=== PATIENT | female | born 1950 | race Caucasian/White ===

== ENCOUNTER 2017-12-16 08:36 | Outpatient (CLI) | payer MEDICARE, OTHER ==
--- NOTE | 2017-12-17 14:05 | Mammography Report ---
DIGITAL SCREENING MAMMOGRAM: 12/16/2017 CLINICAL INDICATION: A 67-year-old for baseline. TECHNIQUE: Routine CC and MLO projections were obtained of the breasts. FINDINGS: The breasts demonstrate scattered fibroglandular densities bilaterally. Coarse and punctate, typically benign calcifications are present. No suspicious masses, clustered microcalcifications, or regions of architectural distortion are identified. IMPRESSION: BENIGN FINDINGS. RECOMMENDATION: Routine annual screening unless otherwise clinically indicated. BI-RADS CATEGORY 2 - BENIGN FINDINGS. STANDARD QUALIFYING STATEMENTS: 1. This examination was reviewed with the aid of Computer-Aided Detection (CAD). 2. A negative or benign imaging report should not delay biopsy if clinically suspicious findings are present. Consider surgical consultation if warranted. More than 5% of cancers are not identified by imaging. 3. Dense breasts may obscure an underlying neoplasm. TD: 12/17/2017 14:04
== END 2017-12-16 08:37 | disposition home or self-care (01) ==
LOC: DI 08:36
PROVIDERS: ATTEND Physician Assistant
DX: Z12.31 Encounter for screening mammogram for malignant neoplasm of breast (principal)
CPT/HCPCS: 77067

== ENCOUNTER 2017-12-16 08:38 | Outpatient (CLI) | payer MEDICARE, OTHER ==
--- NOTE | 2017-12-17 16:32 | DEXA Report ---
EXAM: DEXA 12/16/2017 CLINICAL INDICATION: Postmenopausal. TECHNIQUE: Dual energy x-ray absorptiometry (DXA) was performed on a [employer] system. Regions measured are the AP spine, femoral neck, and, if needed, forearm. COMPARISON: None. In accordance with the International Society for Clinical Densitometry (ISCD) guidelines, data from previous exams may be reanalyzed using current recommendations and techniques. This is done to allow a more accurate basis for comparison with the current study. FINDINGS Data for the lumbar spine is as follows: REGION BMD (g/cm/cm) T-SCORE Z-SCORE L1 1.011 -1.0 0.8 L2 0.964 -2.0 -0.2 L3 1.114 -0.7 1.0 L4 1.216 0.1 1.9 L1-L4 1.093 -0.7 1.0 L2-L4 1.114 -0.7 1.0 NOTE: All evaluable vertebrae are used for classification. Data for the hip is as follows: REGION BMD (g/cm/cm) T-SCORE Z-SCORE Neck 0.814 -1.6 -0.1 TOTAL 0.903 -0.8 0.6 NOTE: The femoral neck or total proximal femur, whichever is lowest, is used for classification. IMPRESSION THE WHO CLASSIFICATION BASED ON THE INTERNATIONAL REFERENCE STANDARD IS OSTEOPENIA (REFERENCE LEFT FEMORAL NECK). THE FRACTURE RISK IS INCREASED. RECOMMENDATION: Patients with diagnosis of osteoporosis or osteopenia should have regular bone mineral density assessment. For those eligible for Medicare, routine testing is allowed once every 2 years. Testing frequency can be increased for patients who have rapidly progressing disease or for those who are receiving medical therapy to restore bone mass. COMMENT World Health Organization (WHO) definitions for osteoporosis and osteopenia: NORMAL BMD: T-score at 1.0 or higher, fracture risk is low. OSTEOPENIA BMD: T-score between 1.0 and -2.5, fracture risk is increased. OSTEOPOROSIS BMD: T-score at 2.5 or lower, fracture risk high. National Osteoporosis Foundation recommends: 1. Obtain adequate dietary calcium (at least 1200 mg per day) and vitamin D (400 -800 international units per day). 2. Participate, as appropriate, in regular weightbearing and muscle- strengthening exercise. 3. Avoid tobacco use and reduce alcohol and caffeine intake. 4. For more detailed information see the website at www.NOF.org. TD: 12/16/2017 10:25 CANELO
== END 2017-12-16 08:39 | disposition home or self-care (01) ==
LOC: DI 08:38
PROVIDERS: ATTEND Physician Assistant
DX: M85.852 Other specified disorders of bone density and structure, left thigh (principal)
CPT/HCPCS: 77080

== ENCOUNTER 2018-01-06 09:45 | Outpatient (CLI) | payer MEDICARE, OTHER ==
[2018-01-06 12:48] LABS: BASOPHILS % (AUTO) 0.9 %; EOSINOPHILS # (AUTO) 0.1 10^3/uL (0.0-0.7); EOSINOPHILS % (AUTO) 2.1 %; HGB - HEMOGLOBIN 13.1 g/dL (12.0-16.0); LYMPHOCYTES % (AUTO) 22.3 %; MEAN CORPUSCULAR HEMOGLOBIN 34.5 pg (27.0-31.0); MEAN CORPUSCULAR HGB CONC 34.6 g/dL (32.0-36.0); MEAN CORPUSCULAR VOLUME 99.8 fL (81.0-99.0); MEAN PLATELET VOLUME 7.3 fL (7.9-10.8); MONOCYTES # (AUTO) 0.4 10^3/uL (0.0-1.0); MONOCYTES % (AUTO) 9.7 %; NEUTROPHILS # (AUTO) 2.9 10^3/uL (1.5-6.6); PLT - PLATELET COUNT 188 10^3/uL (130-450); RED BLOOD COUNT 3.79 10^6/uL (4.20-5.40); RED CELL DISTRIBUTION WIDTH 13.3 % (12.0-15.0); WHITE BLOOD COUNT 4.5 x10^3/uL (4.8-10.8)
[2018-01-06 14:17] LABS: HB2 TOTAL 13.4 g/dL; HEMOGLOBIN A1C 0.49 g/dL; HEMOGLOBIN A1C % 5.5 % (4.6-6.2)
[2018-01-06 14:42] LABS: ALBUMIN 3.1 g/dL (3.2-5.5); ALBUMIN/GLOBULIN RATIO 1.1 (1.0-2.2); ALKALINE PHOSPHATASE 45 IU/L (42-121); ALT ALANINE AMINOTRANSFERASE 24 IU/L (10-60); AST ASPARTATE AMINOTRANSFERASE 32 IU/L (10-42); BILIRUBIN,TOTAL 0.8 mg/dL (0.2-1.0); BUN - BLOOD UREA NITROGEN 21 mg/dL (6-20); CALCIUM 8.8 mg/dL (8.5-10.3); CARBON DIOXIDE - CO2 30 mmol/L (21-32); CHLORIDE 98 mmol/L (101-111); CHOL/HDL RATIO 2.2 (<4.4); CHOLESTEROL 307 mg/dL; CREATININE 0.7 mg/dL (0.4-1.0); GFR - MDRD 83 (>89); GLUCOSE 93 mg/dL (70-100); HDL CHOLESTEROL 140 mg/dL; SODIUM 135 mmol/L (135-145); TOTAL PROTEIN 5.8 g/dL (6.7-8.2)
[2018-01-06 16:53] LABS: LDL CHOLESTEROL,DIRECT 121 mg/dL; LDLD/HDL RATIO 0.9 (<4.4)
== END 2018-01-06 09:46 ==
LOC: LAB.WCP 09:45
PROVIDERS: ATTEND Physician Assistant
DX: Z00.00 Encounter for general adult medical examination without abnormal findings (principal); I10 Essential (primary) hypertension
CPT/HCPCS: 36415; 80053; 80061; 83036; 83721; 84443; 85025

== ENCOUNTER 2018-04-14 13:35 | Outpatient (CLI) | payer MEDICARE, OTHER ==
--- NOTE | 2018-04-14 16:05 | XRAY Report ---
Reason: HIP JOINT PAIN,RT Procedure Date: 04/14/2018 Accession Number: [id number] / [id number] Procedure: XR - Hip w/Pelvis 2-3V RT CPT Code: FULL RESULT: EXAM: RIGHT HIP AND PELVIS RADIOGRAPHY EXAM DATE: 04/14/2018 02:28 PM. HISTORY: Right hip joint pain. COMPARISONS: None. TECHNIQUE: 1 view of the pelvis and 1 view of the hip. FINDINGS: Bones: Normal. No fracture or bone lesion. Joints: Mild loss of the bilateral femoroacetabular joint spaces. On the right there is prominence of the lateral roof of the acetabulum which can be seen with pincer-type femoroacetabular impingement syndrome. Sacroiliac joints are congruent. Soft Tissues: Normal. No soft tissue swelling. 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 Question right femoroacetabular impingement syndrome. RADIA
== END 2018-04-14 13:36 | disposition home or self-care (01) ==
LOC: DI 13:35
PROVIDERS: ATTEND Physician Assistant
DX: M16.0 Bilateral primary osteoarthritis of hip (principal)

== ENCOUNTER 2018-06-28 14:29 | Outpatient (CLI) | payer MEDICARE, OTHER ==
--- NOTE | 2018-06-28 15:56 | XRAY Report ---
Reason: PAIN IN LT SHOULDER Procedure Date: 06/28/2018 Accession Number: [id number] / [id number] Procedure: XR - Shoulder 3 View LT CPT Code: FULL RESULT: EXAM: LEFT SHOULDER RADIOGRAPHY EXAM DATE: 06/28/2018 03:30 PM. CLINICAL HISTORY: Pain in left shoulder. COMPARISON: None. TECHNIQUE: 3 views. FINDINGS: Bones: There is an oblique sagittally oriented fracture of the humeral head mostly undermining the greater tuberosity, not significantly displaced. No appreciable transverse component of the humeral neck. No angulation. Joints: The glenohumeral and acromioclavicular joints are normal. Soft tissues: The visualized hemithorax is unremarkable. No soft tissue swelling. IMPRESSION: Nondisplaced oblique fracture of the humeral head mostly undermining the greater tuberosity. No appreciable transverse component. RADIA The above findings were discussed with Delisa Mota by Dr. Mark Aguirre at 15:54 hrs on 06/28/2018.Findings also discussed with patient by Dr. Aguirre; patient advised to return to clinic for immobilization and referral per request of Delisa Mota.
== END 2018-06-28 14:30 | disposition home or self-care (01) ==
LOC: DI 14:29
PROVIDERS: ATTEND Nurse Practitioner
DX: S42.295A Other nondisplaced fracture of upper end of left humerus, initial encounter for closed fracture (principal)

== ENCOUNTER 2018-09-23 08:59 | Outpatient (CLI) | payer MEDICARE, OTHER ==
--- NOTE | 2018-09-23 10:03 | XRAY Report ---
Reason: OTHER NONDISPLACED FRACTURE OF UPPER END OF LT HUM Procedure Date: 09/23/2018 Accession Number: [id number] / [id number] Procedure: WCP - Shoulder 3 View LT CPT Code: FULL RESULT: EXAM: LEFT SHOULDER RADIOGRAPHY EXAM DATE: 09/23/2018 09:14 AM. CLINICAL HISTORY: Other nondisplaced fracture of upper end of left humerus. COMPARISON: SHOULDER 3 VIEW LT 08/13/2018 10:55 AM. TECHNIQUE: 3 views. FINDINGS: Bones: There are expected interval healing changes of prior nondisplaced fracture of the humeral head undermining the greater tuberosity. There has been no change in alignment. Appearance of formation of intact bony bridging across the previous fracture line. No new fractures appreciated. Joints: No dislocation or subluxation. Soft tissues: The visualized hemithorax is unremarkable. No soft tissue swelling. IMPRESSION: Expected interval healing changes of the humeral head fracture as described. RADIA
== END 2018-09-23 09:00 | disposition home or self-care (01) ==
LOC: DI.WCP 08:59
PROVIDERS: ATTEND Physician Assistant
DX: S42.295A Other nondisplaced fracture of upper end of left humerus, initial encounter for closed fracture (principal)

== ENCOUNTER 2018-11-11 11:25 | Outpatient (CLI) | payer MEDICARE, OTHER ==
[2018-11-11 18:36] LABS: EOSINOPHILS # (AUTO) 0.1 10^3/uL (0.0-0.7); EOSINOPHILS % (AUTO) 1.8 %; HGB - HEMOGLOBIN 11.2 g/dL (12.0-16.0); LYMPHOCYTES # (AUTO) 0.9 10^3/uL (1.5-3.5); LYMPHOCYTES % (AUTO) 17.3 %; MEAN CORPUSCULAR HEMOGLOBIN 34.1 pg (27.0-31.0); MEAN CORPUSCULAR HGB CONC 33.9 g/dL (32.0-36.0); MEAN CORPUSCULAR VOLUME 100.4 fL (81.0-99.0); MEAN PLATELET VOLUME 7.5 fL (7.9-10.8); MONOCYTES # (AUTO) 0.4 10^3/uL (0.0-1.0); MONOCYTES % (AUTO) 8.5 %; NEUTROPHILS # (AUTO) 3.6 10^3/uL (1.5-6.6); NEUTROPHILS % (AUTO) 71.4 %; PLT - PLATELET COUNT 182 10^3/uL (130-450); RED BLOOD COUNT 3.27 10^6/uL (4.20-5.40)
[2018-11-11 18:52] LABS: BILIRUBIN,URINE NEGATIVE (NEGATIVE); GLUCOSE, URINE (UA) NEGATIVE (NEGATIVE); KETONES,URINE (UA) NEGATIVE (NEGATIVE); LEUKOCYTE ESTERASE, URINE NEGATIVE (NEGATIVE); NITRITE,URINE NEGATIVE (NEGATIVE); OCCULT BLOOD,URINE SMALL (NEGATIVE); PH,URINE 5.5 PH (5.0-7.5); PROTEIN,URINE >=300 mg/dL (NEGATIVE); UROBILINOGEN,URINE 0.2 (NORMAL) E.U./dL (NORMAL)
[2018-11-11 19:07] LABS: BACTERIA,URINE None Seen /HPF (None Seen); CASTS, URINE 3-5 Hyaline Casts /LPF; CLARITY,URINE CLEAR (CLEAR); RBC,URINE 0-5 /HPF (0-5); SQUAMOUS EPITHELIAL CELL,UR RARE Squamous (<= Few)
[2018-11-11 20:51] LABS: ALBUMIN 2.7 g/dL (3.2-5.5); ALBUMIN/GLOBULIN RATIO 1.1 (1.0-2.2); BILIRUBIN,TOTAL 0.6 mg/dL (0.2-1.0); CALCIUM 8.9 mg/dL (8.5-10.3); CREATININE 0.9 mg/dL (0.4-1.0); TOTAL PROTEIN 5.2 g/dL (6.7-8.2); URIC ACID 5.3 mg/dL (2.6-7.2)
== END 2018-11-11 11:26 | disposition home or self-care (01) ==
LOC: LAB.WCP 11:25
PROVIDERS: ATTEND Family Medicine
DX: R60.0 Localized edema (principal); I10 Essential (primary) hypertension
CPT/HCPCS: 36415; 80053; 81001; 84443; 84550; 85025; 85651

== ENCOUNTER 2018-11-12 12:04 | Outpatient (CLI) | payer MEDICARE, OTHER ==
[2018-11-12 18:43] LABS: ABSOLUTE RETICS # AUTO 0.077 10^6/uL (0.020-0.110); MEAN RETIC VALUE 124.9; RED BLOOD COUNT 3.22 10^6/uL (4.20-5.40)
[2018-11-12 20:00] LABS: FERRITIN 61.4 ng/mL (11.0-306.8)
[2018-11-12 20:03] LABS: FOLATE 14.54 ng/mL (5.90 - >24.8)
[2018-11-12 20:41] LABS: % IRON SATURATION 12 % (20-50); IRON 28 ug/dL (28-170); TOTAL IRON BINDING CAPACITY 228 ug/dL (250-450); TRANSFERRIN 163 mg/dL (192-382)
[2018-11-15 22:37] LABS: ALBUMIN 2.6 g/dL (3.8-4.8); ALPHA 1 GLOBULIN 0.3 g/dL (0.2-0.3); ALPHA 2 GLOBULIN 0.6 g/dL (0.5-0.9); BETA 1 GLOBULIN 0.2 g/dL (0.4-0.6); BETA 2 GLOBULIN 0.2 g/dL (0.2-0.5); GAMMA GLOBULIN 0.6 g/dL (0.8-1.7)
== END 2018-11-12 23:59 ==
LOC: LAB.WCP 12:04
PROVIDERS: ATTEND Family Medicine
DX: D64.9 Anemia, unspecified (principal); N04.9 Nephrotic syndrome with unspecified morphologic changes
CPT/HCPCS: 36415; 81599; 82607; 82728; 82746; 83540; 84155; 84165; 84466; 85044

== ENCOUNTER 2018-11-16 07:30 | Outpatient (CLI) | payer MEDICARE, OTHER ==
[2018-11-16 14:46] LABS: CREATININE,URINE 56.8 mg/dL
== END 2018-11-16 23:59 | disposition home or self-care (01) ==
LOC: LAB.R 07:30
PROVIDERS: ATTEND Family Medicine
DX: N04.9 Nephrotic syndrome with unspecified morphologic changes (principal)
CPT/HCPCS: 82570; 84156

== ENCOUNTER 2018-12-01 08:00 | Outpatient (CLI) | payer MEDICARE, OTHER ==
[2018-12-03 16:11] LABS: COMPLEMENT COMPONENT C3C 111 mg/dL (83-193); COMPLEMENT COMPONENT C4C 16 mg/dL (15-57)
[2018-12-03 20:52] LABS: ANA SCREEN POSITIVE (NEGATIVE)
[2018-12-03 23:56] LABS: ALBUMIN 2.8 g/dL (3.8-4.8); ALPHA 1 GLOBULIN 0.3 g/dL (0.2-0.3); ALPHA 2 GLOBULIN 0.8 g/dL (0.5-0.9); BETA 1 GLOBULIN 0.3 g/dL (0.4-0.6); BETA 2 GLOBULIN 0.2 g/dL (0.2-0.5); GAMMA GLOBULIN 0.6 g/dL (0.8-1.7)
== END 2018-12-01 23:59 | disposition home or self-care (01) ==
LOC: LAB.WCP 08:00
PROVIDERS: ATTEND Internal Medicine Nephrology
DX: L93.2 Other local lupus erythematosus (principal); D89.89 Other specified disorders involving the immune mechanism, not elsewhere classified; R80.9 Proteinuria, unspecified; D47.2 Monoclonal gammopathy
CPT/HCPCS: 36415; 81599; 82570; 83883; 84155; 84156; 84165; 84166; 86038; 86160; 86334; 86335

== ENCOUNTER 2018-12-10 10:12 | Outpatient (CLI) | payer MEDICARE, OTHER ==
[2018-12-10 10:31] LABS: CALCIUM 8.3 mg/dL (8.5-10.3); CREATININE 0.8 mg/dL (0.4-1.0)
== END 2018-12-10 10:13 | disposition home or self-care (01) ==
LOC: LAB 10:12
PROVIDERS: ATTEND Internal Medicine Nephrology
DX: N05.9 Unspecified nephritic syndrome with unspecified morphologic changes (principal)
CPT/HCPCS: 36415; 80048

== ENCOUNTER 2019-01-07 07:54 | Outpatient (CLI) | payer MEDICARE, OTHER ==
[2019-01-07 08:33] LABS: ALBUMIN 2.7 g/dL (3.2-5.5); CALCIUM 8.1 mg/dL (8.5-10.3); CREATININE 1.1 mg/dL (0.4-1.0)
[2019-01-07 09:40] LABS: CREATININE,URINE 148.4 mg/dL; PROTEIN/CREATININE RATIO,URINE 1.5 (<=0.2)
== END 2019-01-07 07:55 | disposition home or self-care (01) ==
LOC: LAB 07:54
PROVIDERS: ATTEND Internal Medicine Nephrology
DX: R80.9 Proteinuria, unspecified (principal); N05.9 Unspecified nephritic syndrome with unspecified morphologic changes
CPT/HCPCS: 36415; 80048; 80061; 82040; 82570; 83721; 84156

== ENCOUNTER 2019-01-17 13:00 | Outpatient (CLI) | payer MEDICARE, OTHER ==
--- NOTE | 2019-01-17 13:37 | Ultrasound Report ---
Reason: HERNIA,INCISIONAL Procedure Date: 01/17/2019 Accession Number: [id number] / [id number] Procedure: US - Abdomen Limited CPT Code: FULL RESULT: EXAM: ABDOMEN ULTRASOUND LIMITED, SOFT TISSUE. EXAM DATE: 01/17/2019 01:26 PM. CLINICAL HISTORY: Hernia, incisional. COMPARISON: None. TECHNIQUE: Real-time scanning was performed with static images obtained. FINDINGS: Adjacent to the umbilicus, in the area of previous surgical incision is a fat-containing hernia with a 1.1 cm neck which also contains a small amount of fluid. The herniated content is unable to be reduced during the sonographic examination. IMPRESSION: Periumbilical fat-containing hernia, not reducible during examination. RADIA
== END 2019-01-17 13:01 | disposition home or self-care (01) ==
LOC: DI 13:00
PROVIDERS: ATTEND Physician Assistant
DX: K42.9 Umbilical hernia without obstruction or gangrene (principal)
CPT/HCPCS: 76705

== ENCOUNTER 2019-01-21 10:05 | Day surgery (SDC) | payer MEDICARE, OTHER ==
[~2019-01-21 10:05] MED LIST: CEFAZOLIN SODIUM IN 0.9 % NACL 2 GM/100 ML BAG IV ONE
[2019-01-21] MEDS ORDERED: LACTATED RINGERS 1,000 ML IV ONE (10:26)
--- NOTE | 2019-01-21 10:54 | ANESTHESIA ---
Pre-Anesthesia VS, & Labs - Diagnosis incarcerated incisional hernia - Procedure incarcerated incisional hernia repair Vital Signs: Temp Pulse Resp BP Pulse Ox 36.8 C 62 18 173/93 H 100 01/21/19 10:20 01/21/19 10:20 01/21/19 10:20 01/21/19 10:20 01/21/19 10:20 Height 5 ft 2 in Weight (kg) 62 kg - NPO >8 hours - Is Patient ?: Not Applicable Home Medications and Allergies Home Medications: Ambulatory Orders Aspirin 325 mg PO ONCE PRN 01/19/19 Furosemide 40 mg PO DAILY 01/19/19 Lisinopril 40 mg PO DAILY 01/19/19 Aspirin 325 mg PO ONCE PRN 01/19/19 Furosemide 40 mg PO DAILY 01/19/19 Lisinopril 40 mg PO DAILY 01/19/19 Allergies/Adverse Reactions: Allergies Allergy/AdvReac Type Severity Reaction Status Date / Time No Known Drug Allergies Allergy Verified 01/19/19 15:33 Anes History & Medical History - Anesthetic History Anesthesia Complications: reports: No previous complications Family history of Anesthesia Complications: Denies Family history of Malignant Hyperthermia: Denies - Medical History Cardiovascular: reports: Hypertension Pulmonary: reports: None Urinary: reports: Other Musculoskeletal: reports: None, Other Endocrine/Autoimmune: reports: None Skin: reports: None - Surgical History Gynecologic: Hysterectomy Exam General: Alert, Oriented x3, Cooperative, No acute distress Dental: Other (caps, implant) Mouth Openin Fingerbreadth Neck Mobility: Normal Mallampati classification: III Thyromental Distance: 4-6 cm Respiratory: Lungs clear, Normal breath sounds, No respiratory distress, No accessory muscle use Cardiovascular: Regular rate, Normal S1, Normal S2, No murmurs Mental/Cognitive Status: Alert/Oriented X3, Normal for patient Plan Anesthesia Type: General Consent for Procedure(s) Verified and Reviewed: Yes Code Status: Attempt Resuscitation ASA classification: 2-Mild systemic disease Is this case an emergency?: No
[2019-01-21] MEDS ORDERED: BUPIVACAINE 0.5% PF 10 ML VIAL ONE (11:45)
[2019-01-21] MEDS ORDERED: BUPIVACAINE 0.5% PF 30 ML VIAL INFIL ONE (12:55)
[2019-01-21] MEDS ORDERED: PROPOFOL 200 MG/20 ML VIAL IVP ONE (13:25)
[2019-01-21] MEDS ORDERED: ePHEDrine 50 MG/ML VIAL IVP ONE (13:25)
[2019-01-21] MEDS ORDERED: MIDAZOLAM 2 MG/2 ML VIAL IVP ONE (13:25)
[2019-01-21] MEDS ORDERED: ONDANSETRON 4 MG/2 ML VIAL IVP ONE (13:25)
[2019-01-21] MEDS ORDERED: DEXAMETHASONE 4 MG/ML VIAL IVP ONE (13:25)
[2019-01-21] MEDS ORDERED: fentaNYL 100 MCG/2 ML VIAL IVP ONE (13:25)
[2019-01-21] MEDS ORDERED: HYDROcod/ACETAM 5/325 MG TABLET PO PRN (13:43)
[2019-01-21] MEDS ORDERED: HYDROmorphone 0.5 MG/0.5 ML SYRINGE IVP PRN (13:43)
[2019-01-21] MEDS ORDERED: ONDANSETRON 4 MG/2 ML VIAL IVP PRN (13:43)
--- NOTE | 2019-01-21 13:47 | OPERATIVE REPORT ---
Operative Report - General Planned Procedure: Incarcerated incisional herniorrhaphy Pre-Op Diagnosis: Incarcerated incisional hernia Procedure Performed: Incarcerated incisional herniorrhaphy with partial omentectomy Post Op Diagnosis: Incarcerated incisional hernia with omentum - Procedure Note Primary Surgeon: Luiz Payne MD Anesthesia Provider: Vish Luciano CRNA Anesthesia Technique: General ET tube, Local (30 mL of half percent Marcaine) IV Fluids (mL): 900 Estimated Blood Loss (mL): 5 Drain/Tube Type: Other (None.) Complications: None. - Other Other Information/Narrative: OPERATIVE DESCRIPTION/REPORT: After verbal and written informed consent was obtained detailing the risks of infection, bleeding requiring transfusion with its risks, nerve injury, and , and after I met with the patient confirming the surgery and the site of the surgery, the patient was brought to the operative suite and placed supine on the operating table. Great care was taken to avoid pressure points to prevent pressure necrosis or nerve injury. Monitoring devices were applied along with TEDs and pneumatic compressive stockings (to prevent DVT). The patient received preoperative antibiotics for surgical prophylaxis. Vish Luciano CRNA sedated and anesthetized the patient for the entire procedure. The patient was prepped and draped in the usual sterile manner. With the patient draped my initials were clearly visible. A "time in" then confirmed that the patient was identified with 3 identifiers (name, date and medical record number), the history and physical was in the chart, the signed consent confirming the procedure was in the chart, the patient was in the correct position, the aforementioned prophylactic measures were in place or given, we had the correct personnel and equipment to complete the procedure and that anesthesia, surgery and nursing were given an opportunity to express any concerns. With the agreement of everyone in the room, we proceeded with the operation. A vertical midline incision was made overlying the mass tracing the previous incision and dissection was carried down to the hernia sac using a combination of Metzenbaum scissors, scalpel, and mostly Bovie electrocautery. The sac was cleared of overlying adherent tissue, and the fascial defect was delineated. The fascia was cleared of any adherent tissue for a distance 1.5 cm from the defect. It was clear that there was significant incarcerated omentum that cannot be reduced back into the abdomen easily. It was a dark hue although it was not completely necrotic. It was simpler and safer to ligate the compromised omentum with a 2-0 Vicryl suture ligature and transect the compromised omentum. The sac was taken along with a compromised omentum. The defect was closed using Ventralex ST hernia patch (Ref #[id number], Lot #[id number], and use by date 2020-08-13) sewing it in place using interrupted 2-0 PDS. The fascia was closed over the mesh using a 2-0 PDS [id number] suture. The subcutaneous tissues were copiously irrigated, and then closed using an interrupted 2-0 Vicryl. The fascia on the skin were injected using half percent Marcaine for long-term pain control. Meticulous hemostasis was obtained using Bovie electrocautery. The skin incision was approximated with a running 4-0 Monocryl. At this point a time out was performed that confirmed that all the counts were correct, the procedure that was performed, the blood loss, the IV fluids administered, and the patients condition. Having tolerated the procedure well, the patient was subsequently extubated and taken to recovery room in good and stable condition. [employer] disclaimer: This document was created in part using voice recognition technology. Because of the inherent limitations of the system ([employer] Dictate user manual states that the licensee understands that speech recognition is a statistical process and that recognition errors are inherent in the process), occasional same sounding word substitutions and grammatical errors do occur and persist despite proofreading. Please read this document for context.
[2019-01-21 14:18] VITALS: BP 141/86
== END 2019-01-21 10:06 | disposition home or self-care (01) ==
LOC: SDS 10:05
PROVIDERS: ATTEND Surgery
PROC: 0DBU0ZZ Excision of Omentum, Open Approach (ICD-10-PCS; 2019-01-21)
PROC: 0WUF0JZ Supplement Abdominal Wall with Synthetic Substitute, Open Approach (ICD-10-PCS; principal; 2019-01-21 11:45)
DX: K43.0 Incisional hernia with obstruction, without gangrene (principal); I10 Essential (primary) hypertension; Z79.899 Other long term (current) drug therapy; Z90.710 Acquired absence of both cervix and uterus
CPT/HCPCS: 49561; 49568; C1781; J0690; J7120

== ENCOUNTER 2019-02-16 10:35 | Outpatient (CLI) | payer MEDICARE, OTHER ==
[2019-02-16 11:08] LABS: ALBUMIN 2.9 g/dL (3.2-5.5); CALCIUM 8.7 mg/dL (8.5-10.3); CREATININE 1.2 mg/dL (0.4-1.0)
[2019-02-16 11:40] LABS: CREATININE,URINE 88.2 mg/dL; MICROALBUM/CREATININE RATIO,UR 936.5 ug/mg (<30.0); MICROALBUMIN,URINE 82.6 mg/dL (0-300.0)
== END 2019-02-16 10:36 | disposition home or self-care (01) ==
LOC: LAB 10:35
PROVIDERS: ATTEND Internal Medicine Nephrology
DX: N05.9 Unspecified nephritic syndrome with unspecified morphologic changes (principal); R80.9 Proteinuria, unspecified
CPT/HCPCS: 36415; 80048; 82040; 82043; 82570

== ENCOUNTER 2019-03-31 10:55 | Outpatient (CLI) | payer MEDICARE, OTHER ==
[2019-03-31 11:36] LABS: ALBUMIN 2.8 g/dL (3.2-5.5); CALCIUM 8.8 mg/dL (8.5-10.3); CREATININE 1.4 mg/dL (0.4-1.0)
[2019-03-31 11:37] LABS: CREATININE,URINE 59.4 mg/dL; PROTEIN/CREATININE RATIO,URINE 1.8 (<=0.2)
== END 2019-03-31 10:56 | disposition home or self-care (01) ==
LOC: LAB 10:55
PROVIDERS: ATTEND Internal Medicine Nephrology
DX: R80.9 Proteinuria, unspecified (principal); N05.9 Unspecified nephritic syndrome with unspecified morphologic changes
CPT/HCPCS: 36415; 80048; 82040; 82570; 84156

== ENCOUNTER 2019-04-07 08:13 | Outpatient (CLI) | payer MEDICARE, OTHER ==
--- NOTE | 2019-04-08 14:29 | Ultrasound Report ---
Reason: RENAL VEIN THROMBOSIS Procedure Date: 04/07/2019 Accession Number: [id number] / [id number] Procedure: US - Arterial Visceral Complete CPT Code: FULL RESULT: EXAM: RENAL ARTERY DOPPLER ULTRASOUND EXAM DATE: 04/07/2019 09:41 AM. CLINICAL HISTORY: Renal vein thrombosis. History of recent kidney biopsy left side. COMPARISON: None. TECHNIQUE: Real-time sonographic vascular imaging was performed by the planner intern through the renal arterial system with a linear transducer utilizing color-flow, Doppler flow, and spectral analysis. Multiple sales account representative static images were saved for review. FINDINGS: The kidneys are normal in size. A few scattered cysts are seen bilaterally measuring up to 1.6 cm on the right and 3.7 cm on the left. Some vague hypoechoic cortical change in the posterior mid left kidney is seen which may be related to recent postbiopsy changes although no perinephric hematoma is identified. There is no hydronephrosis or nephrolithiasis. Doppler analysis of the renal arteries demonstrates no elevated velocities to suggest renal artery stenosis. The resistive indices are within normal limits. The renal veins are patent bilaterally. Right Kidney: 11.5 x 4.5 x 4.7 cm. Echotexture: Within normal limits. Right Segmental Artery: Upper pole: PSV 35 cm/sec, RI 0.69. Mid pole: PSV 27 cm/sec, RI 0.69. Lower pole: PSV 18 cm/sec, RI 0.63. Right Renal Artery: Origin: PSV 142 cm/sec, RA/AO 1.49. Proximal: PSV 150 cm/sec, RA/AO 1.58. Mid: PSV 130 cm/sec, RA/AO 1.37. Distal: PSV 108 cm/sec, RA/AO 1.14. Aorta PSV: 95 cm/sec. RRV Patent: Yes. Left Kidney: 11.5 x 5.7 x 5.1 cm. Echotexture: Within normal limits. Left Segmental Artery: Upper pole: PSV 21 cm/sec, RI 0.63. Mid pole: PSV 26 cm/sec, RI 0.65. Lower pole: PSV 26 cm/sec, RI 0.67. Left Renal Artery: Origin: PSV 78 cm/sec, RA/AO 0.82. Proximal: PSV 120 cm/sec, RA/AO 1.26. Mid: PSV 131 cm/sec, RA/AO 1.38. Distal: PSV 133 cm/sec, RA/AO 1.4. LRV Patent: Yes. IMPRESSION: No renal vein thrombosis or renal artery stenosis demonstrated. No perinephric hematoma status post left renal biopsy. CRITERIA FOR CLASSIFICATION OF RENAL ARTERY (RA) DISEASE BY DUPLEX SCANNING: RA Diameter Reduction/ RA PSV/ RAR: Normal, < 180 cm/sec, < 3.5 < 60%, >= 180 cm/sec, < 3.5 >= 60%, >= 180 cm/sec, >= 3.5 Total Occlusion: Undetectable; Not applicable RADIA
== END 2019-04-07 08:14 | disposition home or self-care (01) ==
LOC: DI 08:13
PROVIDERS: ATTEND Internal Medicine Nephrology
DX: I82.3 Embolism and thrombosis of renal vein (principal)
CPT/HCPCS: 93975

== ENCOUNTER 2019-05-31 09:54 | Outpatient (CLI) | payer MEDICARE, OTHER ==
[2019-05-31 11:24] LABS: CALCIUM 8.3 mg/dL (8.5-10.3); CREATININE 1.4 mg/dL (0.4-1.0)
[2019-06-01 11:48] LABS: HEPATITIS B SURFACE ANTIGEN NON-REACTIVE (NON-REACTIVE); HEPATITIS C ANTIBODY NON-REACTIVE (NON-REACTIVE)
[2019-06-02 08:36] LABS: COMPLEMENT COMPONENT C3C 86 mg/dL (83-193)
[2019-06-02 12:02] LABS: COMPLEMENT COMPONENT C4C 15 mg/dL (15-57)
[2019-06-03 10:31] LABS: HEPATITIS C VIRAL RNA GENOTYPE NOT DETECTED
[2019-06-13 10:56] LABS: ANA SCREEN Positive
== END 2019-05-31 09:55 | disposition home or self-care (01) ==
LOC: LAB 09:54
PROVIDERS: ATTEND Internal Medicine Nephrology
DX: L93.2 Other local lupus erythematosus (principal); N05.9 Unspecified nephritic syndrome with unspecified morphologic changes; I50.32 Chronic diastolic (congestive) heart failure; D89.89 Other specified disorders involving the immune mechanism, not elsewhere classified; B19.10 Unspecified viral hepatitis B without hepatic coma; B17.10 Acute hepatitis C without hepatic coma
CPT/HCPCS: 36415; 80048; 83880; 86038; 86160; 86803; 87340; 87902

== ENCOUNTER 2019-06-06 09:09 | Outpatient (CLI) | payer MEDICARE, OTHER ==
[2019-06-06 09:43] LABS: CHOL/HDL RATIO 3.6 (<4.4); CHOLESTEROL 239 mg/dL; HDL CHOLESTEROL 67 mg/dL; LDL CHOLESTEROL,CALCULATED 150 mg/dL; LDL/HDL RATIO 2.2 (<4.4); VLDL CHOLESTEROL 22 mg/dL
[2019-06-06 10:00] LABS: CREATININE,URINE 162.5 mg/dL; PROTEIN/CREATININE RATIO,URINE 2.4 (<=0.2)
== END 2019-06-06 09:10 | disposition home or self-care (01) ==
LOC: LAB 09:09
PROVIDERS: ATTEND Internal Medicine Nephrology
DX: R80.9 Proteinuria, unspecified (principal); E78.5 Hyperlipidemia, unspecified
CPT/HCPCS: 36415; 80061; 82040; 82570; 83721; 84156

== ENCOUNTER 2019-09-14 08:49 | Outpatient (CLI) | payer MEDICARE, OTHER ==
[2019-09-14 09:45] LABS: CREATININE 1.1 mg/dL (0.4-1.0)
[2019-09-14 10:19] LABS: CREATININE,URINE 229.9 mg/dL; PROTEIN/CREATININE RATIO,URINE 2.2 (<=0.2)
== END 2019-09-14 08:50 | disposition home or self-care (01) ==
LOC: LAB 08:49
PROVIDERS: ATTEND Internal Medicine Nephrology
DX: N05.9 Unspecified nephritic syndrome with unspecified morphologic changes (principal); R80.9 Proteinuria, unspecified
CPT/HCPCS: 36415; 82565; 82570; 84156

== ENCOUNTER 2019-10-12 08:58 | Outpatient (CLI) | payer MEDICARE, OTHER ==
[2019-10-12 09:23] LABS: BASOPHILS % (AUTO) 0.7 %; EOSINOPHILS # (AUTO) 0.1 10^3/uL (0.0-0.7); EOSINOPHILS % (AUTO) 2.4 %; HGB - HEMOGLOBIN 8.6 g/dL (12.0-16.0); LYMPHOCYTES # (AUTO) 1.1 10^3/uL (1.5-3.5); LYMPHOCYTES % (AUTO) 21.2 %; MEAN CORPUSCULAR HEMOGLOBIN 32.8 pg (27.0-31.0); MEAN CORPUSCULAR HGB CONC 31.9 g/dL (32.0-36.0); MEAN CORPUSCULAR VOLUME 103.1 fL (81.0-99.0); MEAN PLATELET VOLUME 9.5 fL (7.9-10.8); MONOCYTES # (AUTO) 0.5 10^3/uL (0.0-1.0); MONOCYTES % (AUTO) 8.8 %; NEUTROPHILS # (AUTO) 3.6 10^3/uL (1.5-6.6); NEUTROPHILS % (AUTO) 66.5 %; PLT - PLATELET COUNT 203 10^3/uL (130-450); RED BLOOD COUNT 2.62 10^6/uL (4.20-5.40); RED CELL DISTRIBUTION WIDTH 13.6 % (12.0-15.0); WHITE BLOOD COUNT 5.3 x10^3/uL (4.8-10.8)
== END 2019-10-12 08:59 | disposition home or self-care (01) ==
LOC: LAB 08:58
PROVIDERS: ATTEND Internal Medicine Nephrology
DX: D70.9 Neutropenia, unspecified (principal); D63.1 Anemia in chronic kidney disease; N18.9 Chronic kidney disease, unspecified
CPT/HCPCS: 36415; 85025

== ENCOUNTER 2019-10-26 08:33 | Outpatient (CLI) | payer MEDICARE, OTHER ==
[2019-10-26 08:44] LABS: BASOPHILS % (AUTO) 0.6 %; EOSINOPHILS # (AUTO) 0.1 10^3/uL (0.0-0.7); EOSINOPHILS % (AUTO) 2.1 %; HGB - HEMOGLOBIN 8.6 g/dL (12.0-16.0); LYMPHOCYTES # (AUTO) 0.7 10^3/uL (1.5-3.5); LYMPHOCYTES % (AUTO) 19.6 %; MEAN CORPUSCULAR HEMOGLOBIN 35.5 pg (27.0-31.0); MEAN CORPUSCULAR HGB CONC 33.6 g/dL (32.0-36.0); MEAN CORPUSCULAR VOLUME 105.8 fL (81.0-99.0); MEAN PLATELET VOLUME 8.8 fL (7.9-10.8); MONOCYTES # (AUTO) 0.4 10^3/uL (0.0-1.0); MONOCYTES % (AUTO) 12.2 %; NEUTROPHILS # (AUTO) 2.2 10^3/uL (1.5-6.6); NEUTROPHILS % (AUTO) 64.6 %; PLT - PLATELET COUNT 147 10^3/uL (130-450); RED BLOOD COUNT 2.42 10^6/uL (4.20-5.40); RED CELL DISTRIBUTION WIDTH 14.2 % (12.0-15.0); WHITE BLOOD COUNT 3.4 x10^3/uL (4.8-10.8)
[2019-10-26 08:53] LABS: CALCIUM 8.2 mg/dL (8.5-10.3); CREATININE 1.6 mg/dL (0.4-1.0)
[2019-10-26 09:22] LABS: CREATININE,URINE 165.9 mg/dL; PROTEIN/CREATININE RATIO,URINE 1.2 (<=0.2)
== END 2019-10-26 08:34 | disposition home or self-care (01) ==
LOC: LAB 08:33
PROVIDERS: ATTEND Internal Medicine Nephrology
DX: D70.9 Neutropenia, unspecified (principal); D63.1 Anemia in chronic kidney disease; R80.9 Proteinuria, unspecified; I77.6 Arteritis, unspecified; N18.9 Chronic kidney disease, unspecified
CPT/HCPCS: 36415; 80048; 82570; 84156; 85025

== ENCOUNTER 2019-11-15 08:50 | Outpatient (CLI) | payer MEDICARE, OTHER ==
[2019-11-15 09:02] LABS: BASOPHILS % (AUTO) 0.6 %; EOSINOPHILS # (AUTO) 0.1 10^3/uL (0.0-0.7); EOSINOPHILS % (AUTO) 3.1 %; HGB - HEMOGLOBIN 7.9 g/dL (12.0-16.0); LYMPHOCYTES # (AUTO) 0.3 10^3/uL (1.5-3.5); LYMPHOCYTES % (AUTO) 8.3 %; MEAN CORPUSCULAR HEMOGLOBIN 35.4 pg (27.0-31.0); MEAN CORPUSCULAR HGB CONC 33.2 g/dL (32.0-36.0); MEAN CORPUSCULAR VOLUME 106.7 fL (81.0-99.0); MEAN PLATELET VOLUME 8.8 fL (7.9-10.8); MONOCYTES # (AUTO) 0.4 10^3/uL (0.0-1.0); MONOCYTES % (AUTO) 12.7 %; NEUTROPHILS # (AUTO) 2.4 10^3/uL (1.5-6.6); NEUTROPHILS % (AUTO) 74.1 %; PLT - PLATELET COUNT 122 10^3/uL (130-450); RED BLOOD COUNT 2.23 10^6/uL (4.20-5.40); RED CELL DISTRIBUTION WIDTH 15.1 % (12.0-15.0); WHITE BLOOD COUNT 3.2 x10^3/uL (4.8-10.8)
== END 2019-11-15 08:51 | disposition home or self-care (01) ==
LOC: LAB 08:50
PROVIDERS: ATTEND Internal Medicine Nephrology
DX: D70.9 Neutropenia, unspecified (principal); N18.9 Chronic kidney disease, unspecified; D63.1 Anemia in chronic kidney disease
CPT/HCPCS: 36415; 85025

== ENCOUNTER 2019-12-08 08:22 | Outpatient (CLI) | payer MEDICARE, OTHER ==
[2019-12-08 08:32] LABS: BASOPHILS # (AUTO) 0.1 10^3/uL (0.0-0.1); BASOPHILS % (AUTO) 1.2 %; EOSINOPHILS # (AUTO) 0.2 10^3/uL (0.0-0.7); HGB - HEMOGLOBIN 9.2 g/dL (12.0-16.0); LYMPHOCYTES # (AUTO) 0.7 10^3/uL (1.5-3.5); LYMPHOCYTES % (AUTO) 13.1 %; MEAN CORPUSCULAR HEMOGLOBIN 35.9 pg (27.0-31.0); MEAN CORPUSCULAR HGB CONC 33.9 g/dL (32.0-36.0); MEAN CORPUSCULAR VOLUME 105.9 fL (81.0-99.0); MEAN PLATELET VOLUME 8.8 fL (7.9-10.8); MONOCYTES # (AUTO) 0.6 10^3/uL (0.0-1.0); MONOCYTES % (AUTO) 11.3 %; NEUTROPHILS # (AUTO) 3.5 10^3/uL (1.5-6.6); NEUTROPHILS % (AUTO) 69.8 %; PLT - PLATELET COUNT 151 10^3/uL (130-450); RED BLOOD COUNT 2.56 10^6/uL (4.20-5.40); RED CELL DISTRIBUTION WIDTH 13.9 % (12.0-15.0)
== END 2019-12-08 08:23 | disposition home or self-care (01) ==
LOC: LAB 08:22
PROVIDERS: ATTEND Internal Medicine Nephrology
DX: D70.9 Neutropenia, unspecified (principal); D63.1 Anemia in chronic kidney disease; N18.9 Chronic kidney disease, unspecified
CPT/HCPCS: 36415; 85025

== ENCOUNTER 2019-12-30 08:29 | Outpatient (CLI) | payer MEDICARE, OTHER ==
[2019-12-30 08:44] LABS: BASOPHILS % (AUTO) 0.5 %; EOSINOPHILS # (AUTO) 0.1 10^3/uL (0.0-0.7); EOSINOPHILS % (AUTO) 2.1 %; LYMPHOCYTES # (AUTO) 0.4 10^3/uL (1.5-3.5); LYMPHOCYTES % (AUTO) 6.8 %; MEAN CORPUSCULAR HGB CONC 32.4 g/dL (32.0-36.0); MEAN CORPUSCULAR VOLUME 108.2 fL (81.0-99.0); MEAN PLATELET VOLUME 8.8 fL (7.9-10.8); MONOCYTES # (AUTO) 0.4 10^3/uL (0.0-1.0); MONOCYTES % (AUTO) 7.7 %; NEUTROPHILS # (AUTO) 4.7 10^3/uL (1.5-6.6); NEUTROPHILS % (AUTO) 82.5 %; PLT - PLATELET COUNT 162 10^3/uL (130-450); RED BLOOD COUNT 2.57 10^6/uL (4.20-5.40); RED CELL DISTRIBUTION WIDTH 13.2 % (12.0-15.0); WHITE BLOOD COUNT 5.7 x10^3/uL (4.8-10.8)
[2019-12-30 08:53] LABS: CALCIUM 8.5 mg/dL (8.5-10.3); CREATININE 1.1 mg/dL (0.4-1.0)
[2019-12-30 09:17] LABS: CREATININE,URINE 177.6 mg/dL; PROTEIN/CREATININE RATIO,URINE 1.5 (<=0.2)
== END 2019-12-30 08:30 | disposition home or self-care (01) ==
LOC: LAB 08:29
PROVIDERS: ATTEND Internal Medicine Nephrology
DX: D70.9 Neutropenia, unspecified (principal); D63.1 Anemia in chronic kidney disease; N05.9 Unspecified nephritic syndrome with unspecified morphologic changes; R80.9 Proteinuria, unspecified
CPT/HCPCS: 36415; 80048; 82570; 84156; 85025

== ENCOUNTER 2020-01-20 08:37 | Outpatient (CLI) | payer MEDICARE, OTHER ==
[2020-01-20 09:30] LABS: BASOPHILS % (AUTO) 0.8 %; EOSINOPHILS # (AUTO) 0.1 10^3/uL (0.0-0.7); EOSINOPHILS % (AUTO) 3.9 %; HGB - HEMOGLOBIN 7.7 g/dL (12.0-16.0); LYMPHOCYTES # (AUTO) 0.4 10^3/uL (1.5-3.5); LYMPHOCYTES % (AUTO) 10.1 %; MEAN CORPUSCULAR HEMOGLOBIN 37.2 pg (27.0-31.0); MEAN CORPUSCULAR VOLUME 112.6 fL (81.0-99.0); MEAN PLATELET VOLUME 9.2 fL (7.9-10.8); MONOCYTES # (AUTO) 0.3 10^3/uL (0.0-1.0); MONOCYTES % (AUTO) 9.2 %; NEUTROPHILS # (AUTO) 2.7 10^3/uL (1.5-6.6); NEUTROPHILS % (AUTO) 75.7 %; PLT - PLATELET COUNT 200 10^3/uL (130-450); RED BLOOD COUNT 2.07 10^6/uL (4.20-5.40); RED CELL DISTRIBUTION WIDTH 15.2 % (12.0-15.0); WHITE BLOOD COUNT 3.6 x10^3/uL (4.8-10.8)
[2020-01-20 09:39] LABS: ALBUMIN 3.2 g/dL (3.2-5.5); CALCIUM 8.6 mg/dL (8.5-10.3)
[2020-01-20 09:52] LABS: PLATELET ESTIMATE, MANUAL NORMAL (130-450,000) (NORMAL); PLATELET MORPHOLOGY NORMAL APPEARANCE (NORMAL); RBC MORPHOLOGY (MULTIPLE) 1+ MACROCYTOSIS (NORMAL)
[2020-01-20 10:37] LABS: CREATININE,URINE 143.4 mg/dL; PROTEIN/CREATININE RATIO,URINE 0.9 (<=0.2)
== END 2020-01-20 08:38 | disposition home or self-care (01) ==
LOC: LAB 08:37
PROVIDERS: ATTEND Internal Medicine Nephrology
DX: N05.9 Unspecified nephritic syndrome with unspecified morphologic changes (principal); D70.9 Neutropenia, unspecified; D63.1 Anemia in chronic kidney disease; R80.9 Proteinuria, unspecified
CPT/HCPCS: 36415; 80048; 82040; 82570; 84156; 85025

== ENCOUNTER 2020-02-03 08:32 | Outpatient (CLI) | payer MEDICARE, OTHER ==
[2020-02-03 08:50] LABS: BASOPHILS % (AUTO) 0.7 %; EOSINOPHILS # (AUTO) 0.2 10^3/uL (0.0-0.7); EOSINOPHILS % (AUTO) 5.1 %; LYMPHOCYTES # (AUTO) 0.4 10^3/uL (1.5-3.5); LYMPHOCYTES % (AUTO) 10.1 %; MEAN CORPUSCULAR HEMOGLOBIN 39.8 pg (27.0-31.0); MEAN CORPUSCULAR HGB CONC 32.6 g/dL (32.0-36.0); MEAN CORPUSCULAR VOLUME 122.2 fL (81.0-99.0); MEAN PLATELET VOLUME 9.1 fL (7.9-10.8); MONOCYTES # (AUTO) 0.5 10^3/uL (0.0-1.0); MONOCYTES % (AUTO) 10.9 %; PLT - PLATELET COUNT 175 10^3/uL (130-450); RED BLOOD COUNT 1.76 10^6/uL (4.20-5.40); RED CELL DISTRIBUTION WIDTH 14.4 % (12.0-15.0); WHITE BLOOD COUNT 4.1 x10^3/uL (4.8-10.8)
== END 2020-02-03 08:33 | disposition home or self-care (01) ==
LOC: LAB 08:32
PROVIDERS: ATTEND Internal Medicine Nephrology
DX: D70.9 Neutropenia, unspecified (principal); D63.1 Anemia in chronic kidney disease
CPT/HCPCS: 36415; 85025

== ENCOUNTER 2020-02-16 08:12 | Outpatient (CLI) | payer MEDICARE, OTHER ==
[2020-02-16 08:27] LABS: BASOPHILS % (AUTO) 0.9 %; EOSINOPHILS # (AUTO) 0.2 10^3/uL (0.0-0.7); EOSINOPHILS % (AUTO) 3.9 %; HGB - HEMOGLOBIN 8.7 g/dL (12.0-16.0); LYMPHOCYTES # (AUTO) 0.5 10^3/uL (1.5-3.5); LYMPHOCYTES % (AUTO) 12.3 %; MEAN CORPUSCULAR HEMOGLOBIN 39.5 pg (27.0-31.0); MEAN CORPUSCULAR HGB CONC 33.6 g/dL (32.0-36.0); MEAN CORPUSCULAR VOLUME 117.7 fL (81.0-99.0); MEAN PLATELET VOLUME 8.6 fL (7.9-10.8); MONOCYTES # (AUTO) 0.5 10^3/uL (0.0-1.0); MONOCYTES % (AUTO) 10.5 %; NEUTROPHILS # (AUTO) 3.2 10^3/uL (1.5-6.6); NEUTROPHILS % (AUTO) 72.2 %; PLT - PLATELET COUNT 139 10^3/uL (130-450); RED CELL DISTRIBUTION WIDTH 12.1 % (12.0-15.0); WHITE BLOOD COUNT 4.4 x10^3/uL (4.8-10.8)
[2020-02-16 09:09] LABS: % IRON SATURATION 28 % (20-50); IRON 75 ug/dL (28-170); TOTAL IRON BINDING CAPACITY 267 ug/dL (250-450); TRANSFERRIN 191 mg/dL (192-382)
[2020-02-16 09:18] LABS: FERRITIN 160.9 ng/mL (11.0-306.8)
[2020-02-16 09:22] LABS: FOLATE 9.58 ng/mL (5.90 - >24.8)
[2020-02-16 09:30] LABS: PLATELET ESTIMATE, MANUAL NORMAL (130-450,000) (NORMAL); PLATELET MORPHOLOGY NORMAL APPEARANCE (NORMAL); RBC MORPHOLOGY (MULTIPLE) 3+ MACROCYTOSIS (NORMAL)
== END 2020-02-16 08:13 | disposition home or self-care (01) ==
LOC: LAB 08:12
PROVIDERS: ATTEND Internal Medicine Nephrology
DX: D53.9 Nutritional anemia, unspecified (principal); D70.9 Neutropenia, unspecified; D63.1 Anemia in chronic kidney disease; D50.0 Iron deficiency anemia secondary to blood loss (chronic)
CPT/HCPCS: 36415; 82607; 82728; 82746; 83540; 84466; 85025

== ENCOUNTER 2020-04-04 08:45 | Outpatient (CLI) | payer MEDICARE, OTHER ==
[2020-04-04 08:57] LABS: BASOPHILS % (AUTO) 0.5 %; EOSINOPHILS # (AUTO) 0.2 10^3/uL (0.0-0.7); EOSINOPHILS % (AUTO) 5.6 %; HGB - HEMOGLOBIN 8.3 g/dL (12.0-16.0); LYMPHOCYTES # (AUTO) 0.4 10^3/uL (1.5-3.5); LYMPHOCYTES % (AUTO) 8.5 %; MEAN CORPUSCULAR HEMOGLOBIN 37.9 pg (27.0-31.0); MEAN CORPUSCULAR HGB CONC 32.5 g/dL (32.0-36.0); MEAN CORPUSCULAR VOLUME 116.4 fL (81.0-99.0); MEAN PLATELET VOLUME 8.7 fL (7.9-10.8); MONOCYTES # (AUTO) 0.5 10^3/uL (0.0-1.0); MONOCYTES % (AUTO) 13.1 %; NEUTROPHILS % (AUTO) 72.1 %; PLT - PLATELET COUNT 154 10^3/uL (130-450); RED BLOOD COUNT 2.19 10^6/uL (4.20-5.40); RED CELL DISTRIBUTION WIDTH 13.1 % (12.0-15.0); WHITE BLOOD COUNT 4.1 x10^3/uL (4.8-10.8)
[2020-04-04 09:05] LABS: CALCIUM 8.7 mg/dL (8.5-10.3); CREATININE 1.1 mg/dL (0.4-1.0)
[2020-04-04 09:34] LABS: CREATININE,URINE 182.2 mg/dL; PROTEIN/CREATININE RATIO,URINE 0.2 (<=0.2)
== END 2020-04-04 08:46 | disposition home or self-care (01) ==
LOC: LAB 08:45
PROVIDERS: ATTEND Internal Medicine Nephrology
DX: D70.9 Neutropenia, unspecified (principal); D63.1 Anemia in chronic kidney disease; R80.9 Proteinuria, unspecified; N05.9 Unspecified nephritic syndrome with unspecified morphologic changes
CPT/HCPCS: 36415; 80048; 82570; 84156; 85025

== ENCOUNTER 2020-04-11 07:00 | Outpatient (CLI) | payer MEDICARE, OTHER | END 2020-04-11 23:59 | disposition home or self-care (01) | LOC: LAB.R 07:00 | PROVIDERS: ATTEND Physician Assistant | DX: Z20.828 Contact with and (suspected) exposure to other viral communicable diseases (principal) ==

== ENCOUNTER 2020-05-03 09:48 | Outpatient (CLI) | payer MEDICARE, OTHER ==
[2020-05-03 10:02] LABS: BASOPHILS % (AUTO) 0.4 %; EOSINOPHILS # (AUTO) 0.1 10^3/uL (0.0-0.7); HGB - HEMOGLOBIN 8.2 g/dL (12.0-16.0); LYMPHOCYTES # (AUTO) 0.5 10^3/uL (1.5-3.5); MEAN CORPUSCULAR HEMOGLOBIN 38.7 pg (27.0-31.0); MEAN CORPUSCULAR HGB CONC 33.3 g/dL (32.0-36.0); MEAN PLATELET VOLUME 8.8 fL (7.9-10.8); MONOCYTES # (AUTO) 0.5 10^3/uL (0.0-1.0); MONOCYTES % (AUTO) 10.8 %; NEUTROPHILS # (AUTO) 3.5 10^3/uL (1.5-6.6); NEUTROPHILS % (AUTO) 74.6 %; PLT - PLATELET COUNT 150 10^3/uL (130-450); RED BLOOD COUNT 2.12 10^6/uL (4.20-5.40); RED CELL DISTRIBUTION WIDTH 12.9 % (12.0-15.0); WHITE BLOOD COUNT 4.6 x10^3/uL (4.8-10.8)
[2020-05-03 10:06] LABS: PLATELET ESTIMATE, MANUAL NORMAL (130-450,000) (NORMAL); PLATELET MORPHOLOGY Y (NORMAL); RBC MORPHOLOGY (MULTIPLE) 2+ MACROCYTOSIS (NORMAL)
== END 2020-05-03 09:49 | disposition home or self-care (01) ==
LOC: LAB 09:48
PROVIDERS: ATTEND Internal Medicine Nephrology
DX: D70.9 Neutropenia, unspecified (principal); N18.9 Chronic kidney disease, unspecified; D63.1 Anemia in chronic kidney disease
CPT/HCPCS: 36415; 85025

== ENCOUNTER 2020-05-21 08:38 | Outpatient (CLI) | payer MEDICARE, OTHER ==
[2020-05-21 08:53] LABS: BASOPHILS % (AUTO) 0.5 %; EOSINOPHILS # (AUTO) 0.1 10^3/uL (0.0-0.7); EOSINOPHILS % (AUTO) 2.9 %; HGB - HEMOGLOBIN 7.9 g/dL (12.0-16.0); LYMPHOCYTES # (AUTO) 0.4 10^3/uL (1.5-3.5); LYMPHOCYTES % (AUTO) 8.6 %; MEAN CORPUSCULAR HEMOGLOBIN 36.7 pg (27.0-31.0); MEAN CORPUSCULAR HGB CONC 31.3 g/dL (32.0-36.0); MEAN CORPUSCULAR VOLUME 117.2 fL (81.0-99.0); MEAN PLATELET VOLUME 8.4 fL (7.9-10.8); MONOCYTES # (AUTO) 0.5 10^3/uL (0.0-1.0); MONOCYTES % (AUTO) 10.2 %; NEUTROPHILS # (AUTO) 3.4 10^3/uL (1.5-6.6); NEUTROPHILS % (AUTO) 77.3 %; PLT - PLATELET COUNT 137 10^3/uL (130-450); RED BLOOD COUNT 2.15 10^6/uL (4.20-5.40); RED CELL DISTRIBUTION WIDTH 13.5 % (12.0-15.0); WHITE BLOOD COUNT 4.4 x10^3/uL (4.8-10.8)
[2020-05-21 11:32] LABS: CREATININE,URINE 107.7 mg/dL; PROTEIN/CREATININE RATIO,URINE 0.2 (<=0.2)
== END 2020-05-21 08:39 | disposition home or self-care (01) ==
LOC: LAB 08:38
PROVIDERS: ATTEND Internal Medicine Nephrology
DX: D70.9 Neutropenia, unspecified (principal); D63.1 Anemia in chronic kidney disease; R80.9 Proteinuria, unspecified; N05.9 Unspecified nephritic syndrome with unspecified morphologic changes
CPT/HCPCS: 36415; 82570; 84156; 85025

== ENCOUNTER 2020-05-30 09:40 | Outpatient (CLI) | payer MEDICARE, OTHER | END 2020-05-30 23:59 | LOC: LAB.R 09:40 | PROVIDERS: ATTEND Physician Assistant | DX: B37.0 Candidal stomatitis (principal) | CPT/HCPCS: 81599; 87102; 87206 ==

== ENCOUNTER 2020-06-05 08:38 | Outpatient (CLI) | payer MEDICARE, OTHER ==
[2020-06-05 08:57] LABS: CALCIUM 8.8 mg/dL (8.5-10.3)
== END 2020-06-05 08:39 | disposition home or self-care (01) ==
LOC: LAB 08:38
PROVIDERS: ATTEND Internal Medicine Nephrology
DX: N05.9 Unspecified nephritic syndrome with unspecified morphologic changes (principal); R80.9 Proteinuria, unspecified
CPT/HCPCS: 80048

== ENCOUNTER 2020-09-18 09:13 | Outpatient (CLI) | payer MEDICARE, OTHER ==
[2020-09-18 09:54] LABS: CALCIUM 9.5 mg/dL (8.5-10.3); CREATININE 1.1 mg/dL (0.4-1.0)
[2020-09-18 10:01] LABS: CREATININE,URINE 219.8 mg/dL; PROTEIN/CREATININE RATIO,URINE 0.1 (<=0.2)
== END 2020-09-18 09:14 | disposition home or self-care (01) ==
LOC: LAB 09:13
PROVIDERS: ATTEND Internal Medicine Nephrology
DX: N05.9 Unspecified nephritic syndrome with unspecified morphologic changes (principal); R80.9 Proteinuria, unspecified
CPT/HCPCS: 36415; 80048; 82570; 84156

== ENCOUNTER 2020-10-15 09:10 | Outpatient (CLI) | payer MEDICARE, OTHER ==
[2020-10-15 09:48] LABS: BASOPHILS % (AUTO) 0.5 %; EOSINOPHILS # (AUTO) 0.1 10^3/uL (0.0-0.7); EOSINOPHILS % (AUTO) 3.1 %; HCT - HEMATOCRIT 30.2 % (37.0-47.0); HGB - HEMOGLOBIN 9.6 g/dL (12.0-16.0); LYMPHOCYTES # (AUTO) 0.5 10^3/uL (1.5-3.5); LYMPHOCYTES % (AUTO) 13.2 %; MEAN CORPUSCULAR HEMOGLOBIN 35.4 pg (27.0-31.0); MEAN CORPUSCULAR HGB CONC 31.8 g/dL (32.0-36.0); MEAN CORPUSCULAR VOLUME 111.4 fL (81.0-99.0); MEAN PLATELET VOLUME 8.9 fL (7.9-10.8); MONOCYTES # (AUTO) 0.3 10^3/uL (0.0-1.0); MONOCYTES % (AUTO) 7.5 %; NEUTROPHILS # (AUTO) 2.9 10^3/uL (1.5-6.6); NEUTROPHILS % (AUTO) 75.4 %; PLT - PLATELET COUNT 127 10^3/uL (130-450); RED BLOOD COUNT 2.71 10^6/uL (4.20-5.40); RED CELL DISTRIBUTION WIDTH 11.9 % (12.0-15.0); WHITE BLOOD COUNT 3.9 x10^3/uL (4.8-10.8)
[2020-10-15 10:08] LABS: CHOLESTEROL 170 mg/dL; HDL CHOLESTEROL 87 mg/dL; LDL CHOLESTEROL,CALCULATED 75 mg/dL; LDL/HDL RATIO 0.9 (<4.4); TRIGLYCERIDES 41 mg/dL; VLDL CHOLESTEROL 8 mg/dL
[2020-10-15 10:16] LABS: THYROID STIMULATING HORMONE 1.79 uIU/mL (0.34-5.60)
[2020-10-15 10:28] LABS: FOLATE 6.95 ng/mL (5.90 - >24.8)
== END 2020-10-15 09:11 | disposition home or self-care (01) ==
LOC: LAB 09:10
PROVIDERS: ATTEND Internal Medicine Nephrology
DX: E03.9 Hypothyroidism, unspecified (principal); E78.5 Hyperlipidemia, unspecified; D70.9 Neutropenia, unspecified; D64.9 Anemia, unspecified
CPT/HCPCS: 36415; 80061; 82607; 82746; 83721; 84443; 85025

== ENCOUNTER 2021-07-18 08:00 | Outpatient (CLI) | payer MEDICARE, OTHER ==
[2021-07-18 12:22] LABS: BASOPHILS % (AUTO) 0.8 %; EOSINOPHILS # (AUTO) 0.2 10^3/uL (0.0-0.7); HCT - HEMATOCRIT 28.2 % (37.0-47.0); HGB - HEMOGLOBIN 9.2 g/dL (12.0-16.0); LYMPHOCYTES # (AUTO) 0.7 10^3/uL (1.5-3.5); LYMPHOCYTES % (AUTO) 13.1 %; MEAN CORPUSCULAR HEMOGLOBIN 33.7 pg (27.0-31.0); MEAN CORPUSCULAR HGB CONC 32.6 g/dL (32.0-36.0); MEAN CORPUSCULAR VOLUME 103.3 fL (81.0-99.0); MEAN PLATELET VOLUME 9.7 fL (7.9-10.8); MONOCYTES # (AUTO) 0.5 10^3/uL (0.0-1.0); MONOCYTES % (AUTO) 9.5 %; NEUTROPHILS # (AUTO) 3.6 10^3/uL (1.5-6.6); NEUTROPHILS % (AUTO) 72.4 %; PLT - PLATELET COUNT 156 10^3/uL (130-450); RED BLOOD COUNT 2.73 10^6/uL (4.20-5.40); RED CELL DISTRIBUTION WIDTH 13.8 % (12.0-15.0)
[2021-07-18 12:51] LABS: ALBUMIN 3.5 g/dL (3.2-5.5); ALBUMIN/GLOBULIN RATIO 1.5 (1.0-2.2); ALKALINE PHOSPHATASE 37 IU/L (42-121); ALT ALANINE AMINOTRANSFERASE 13 IU/L (10-60); AST ASPARTATE AMINOTRANSFERASE 20 IU/L (10-42); BILIRUBIN,TOTAL 0.6 mg/dL (0.2-1.0); BUN - BLOOD UREA NITROGEN 28 mg/dL (6-20); CALCIUM 8.7 mg/dL (8.5-10.3); CARBON DIOXIDE - CO2 29 mmol/L (21-32); CHLORIDE 103 mmol/L (101-111); CHOL/HDL RATIO 2.9 (<4.4); CHOLESTEROL 194 mg/dL; GFR - MDRD 55 (>89); GLUCOSE 94 mg/dL (70-100); HDL CHOLESTEROL 66 mg/dL; LDL CHOLESTEROL,CALCULATED 114 mg/dL; LDL/HDL RATIO 1.7 (<4.4); POTASSIUM 4.2 mmol/L (3.5-5.0); SODIUM 139 mmol/L (135-145); TOTAL PROTEIN 5.9 g/dL (6.7-8.2); TRIGLYCERIDES 68 mg/dL; VLDL CHOLESTEROL 14 mg/dL
[2021-07-18 13:03] LABS: THYROID STIMULATING HORMONE 2.01 uIU/mL (0.34-5.60)
== END 2021-07-18 23:59 | disposition home or self-care (01) ==
LOC: LAB.WCP 08:00
PROVIDERS: ATTEND Family Medicine
DX: R41.3 Other amnesia (principal); N04.9 Nephrotic syndrome with unspecified morphologic changes; I10 Essential (primary) hypertension
CPT/HCPCS: 36415; 80053; 80061; 83721; 84443; 85025

== ENCOUNTER 2021-11-25 08:20 | Outpatient (CLI) | payer MEDICARE, OTHER ==
[2021-11-25 12:30] LABS: CREATININE 1.2 mg/dL (0.4-1.0); POTASSIUM 4.3 mmol/L (3.5-5.0)
[2021-11-25 13:13] LABS: CREATININE,URINE 136.1 mg/dL; MICROALBUM/CREATININE RATIO,UR 586.3 ug/mg (<30.0); MICROALBUMIN,URINE 79.8 mg/dL (0-300.0)
== END 2021-11-25 08:21 | disposition home or self-care (01) ==
LOC: LAB.N 08:20
PROVIDERS: ATTEND Family Medicine
DX: I10 Essential (primary) hypertension (principal); N04.9 Nephrotic syndrome with unspecified morphologic changes; R41.3 Other amnesia
CPT/HCPCS: 36415; 80048; 82043; 82570

== ENCOUNTER 2022-05-12 13:34 | Outpatient (CLI) | payer MEDICARE, OTHER ==
--- NOTE | 2022-05-13 11:30 | Mammography Report ---
BILATERAL DIGITAL SCREENING MAMMOGRAM 3D/2D: 05/12/2022 CLINICAL: Routine screening. Comparison is made to exam dated: 12/16/2017 mammogram - [facility]. Both breasts are heterogeneously dense, which may obscure small masses (category c / 51-75% glandula r tissue). No significant masses, calcifications, or other findings are seen in either breast. There has been no significant interval change. IMPRESSION: NEGATIVE There is no mammographic evidence of malignancy. A 1 year screening mammogram is recommended. Based on the Tyrer Cuzick model (a risk assessment model) the patients lifetime risk is 3.9% and her 10 year risk is 2.9%. According to the ACR, ACS, and NCCN guidelines, an annual breast MRI exam nabeel g with mammogram is recommended if the patients lifetime risk is 20% or greater. This exam was interpreted at Station ID: [id number]. NOTE: For mammograms, a report in lay terms will be sent to the patient. Approximately 15% of breast malignancies will not be visualized mammographically. In the management of a palpable breast mass, a negative mammogram must not discourage biopsy of a clinically suspicious lesion. Electronically Signed By: Victor Manuel Pavon M.D., jr/shahnaz:05/12/2022 15:05:04 ACR BI-RADS Category 1: Negative 3341F PARENCHYMAL PATTERN: (D) - The breast(s) demonstrate(s) heterogeneously dense fibroglandular parhayleey ma. BI-RADS CATEGORY: (1) - 1 RECOMMENDATION: (ANNUAL) - Recommend routine annual screening mammography. [id number] 1 year screening LATERALITY: (B)
== END 2022-05-12 13:35 | disposition home or self-care (01) ==
LOC: DI 13:34
PROVIDERS: ATTEND Family Medicine
DX: Z12.31 Encounter for screening mammogram for malignant neoplasm of breast (principal)

== ENCOUNTER 2022-07-14 07:54 | Outpatient (CLI) | payer MEDICARE, OTHER ==
[2022-07-14 08:17] LABS: HCT - HEMATOCRIT 24.1 % (37.0-47.0); HGB - HEMOGLOBIN 7.9 g/dL (12.0-16.0)
[2022-07-14 08:35] LABS: ALBUMIN 3.1 g/dL (3.2-5.5); ALBUMIN/GLOBULIN RATIO 1.2 (1.0-2.2); BILIRUBIN,TOTAL 0.7 mg/dL (0.2-1.0); CALCIUM 8.4 mg/dL (8.5-10.3); CREATININE 2.3 mg/dL (0.4-1.0); POTASSIUM 4.3 mmol/L (3.5-5.0); TOTAL PROTEIN 5.6 g/dL (6.7-8.2)
[2022-07-14 09:44] LABS: CREATININE,URINE 169.9 mg/dL; MICROALBUM/CREATININE RATIO,UR 4398.5 ug/mg (<30.0); MICROALBUMIN,URINE 747.3 mg/dL (0-300.0); PROTEIN/CREATININE RATIO,URINE 5.5 (<=0.2)
== END 2022-07-14 07:55 | disposition home or self-care (01) ==
LOC: LAB 07:54
PROVIDERS: ATTEND Internal Medicine Nephrology
DX: I10 Essential (primary) hypertension (principal); N06.2 Isolated proteinuria with diffuse membranous glomerulonephritis; N02.2 Recurrent and persistent hematuria with diffuse membranous glomerulonephritis
CPT/HCPCS: 36415; 80053; 81599; 82043; 82570; 84156; 85014; 85018

== ENCOUNTER 2022-08-12 14:16 | Outpatient (CLI) | payer MEDICARE, OTHER ==
[2022-08-12 14:47] LABS: HCT - HEMATOCRIT 17.4 % (37.0-47.0)
[2022-08-12 14:50] LABS: HGB - HEMOGLOBIN 5.6 g/dL (12.0-16.0)
[2022-08-12 15:09] LABS: CALCIUM 7.9 mg/dL (8.5-10.3); POTASSIUM 4.5 mmol/L (3.5-5.0)
[2022-08-12 15:11] LABS: CREATININE 6.9 mg/dL (0.4-1.0)
== END 2022-08-12 14:17 | disposition home or self-care (01) ==
LOC: LAB 14:16
PROVIDERS: ATTEND Internal Medicine Nephrology
DX: I10 Essential (primary) hypertension (principal); N02.2 Recurrent and persistent hematuria with diffuse membranous glomerulonephritis; N06.2 Isolated proteinuria with diffuse membranous glomerulonephritis
CPT/HCPCS: 36415; 80048; 85014; 85018

== ENCOUNTER 2022-08-13 06:32 | Emergency (ER) | payer MEDICARE, OTHER ==
[2022-08-13 07:25] LABS: BASOPHILS % (AUTO) 0.5 %; EOSINOPHILS # (AUTO) 0.2 10^3/uL (0.0-0.7); EOSINOPHILS % (AUTO) 1.9 %; LYMPHOCYTES # (AUTO) 0.5 10^3/uL (1.5-3.5); LYMPHOCYTES % (AUTO) 5.4 %; MEAN CORPUSCULAR HEMOGLOBIN 34.4 pg (27.0-31.0); MEAN CORPUSCULAR HGB CONC 32.8 g/dL (32.0-36.0); MEAN CORPUSCULAR VOLUME 104.8 fL (81.0-99.0); MEAN PLATELET VOLUME 10.4 fL (7.9-10.8); MONOCYTES # (AUTO) 0.6 10^3/uL (0.0-1.0); MONOCYTES % (AUTO) 7.3 %; NEUTROPHILS # (AUTO) 7.1 10^3/uL (1.5-6.6); NEUTROPHILS % (AUTO) 84.2 %; PLT - PLATELET COUNT 131 10^3/uL (130-450); RED BLOOD COUNT 1.89 10^6/uL (4.20-5.40); WHITE BLOOD COUNT 8.4 x10^3/uL (4.8-10.8)
[2022-08-13 07:29] LABS: VBG PCO2 30.5 mmHg (41-51); VBG PH 7.42 (7.31-7.41); VBG PO2 77.4 mmHg (25-47)
[2022-08-13 07:30] LABS: HCT - HEMATOCRIT 19.8 % (37.0-47.0); HGB - HEMOGLOBIN 6.5 g/dL (12.0-16.0); VBG BASE EXCESS -4.5 mmol/L (-2 - +2); VBG HCO3 19.4 mmol/L (23-28); VBG OXYGEN SATURATION 94.4 % (60-80); VBG TOTAL CO2 20.3 mmol/L (24-29)
[2022-08-13 07:57] LABS: ALBUMIN 3.2 g/dL (3.2-5.5); ALBUMIN/GLOBULIN RATIO 1.1 (1.0-2.2); BILIRUBIN,TOTAL 0.7 mg/dL (0.2-1.0); CALCIUM 7.9 mg/dL (8.5-10.3); TOTAL PROTEIN 6.1 g/dL (6.7-8.2)
--- NOTE | 2022-08-13 08:06 | ED Physician Documentation ---
History of Present Illness - Stated complaint Stated Complaint: SOA, WEAKNESS, CONFUSION - Chief complaint Chief Complaint: Resp - History obtained from History obtained from: Patient, Family - Additonal information Additional information: The patient comes to the emergency department with chief complaint of increasing shortness of breath and weakness over the last couple of months, as well as swelling around her ankles. She denies any chest pain. She has had a persistent cough but no fevers. The patient has a history of a "lung condition", But is not sure what it is. She sees a film mounter at [facility] for this. She states she has never been a smoker and does not have any known history of COPD or emphysema. The patient is not aware of having any cardiac diagnoses. She has stage IV renal failure and states that she has been told she will probably have to be on dialysis at some point but has not been as yet. She has a history of chronic anemia but has not noticed any blood in her stools or dark black stools. She has required transfusion on occasion in the past. No other complaints at this time. She states she finally came in this morning because she just felt worse than usual. Review of Systems Ten Systems: 10 systems reviewed and negative Constitutional: reports: Reviewed and negative Eyes: reports: Reviewed and negative Ears: reports: Reviewed and negative Nose: reports: Reviewed and negative Throat: reports: Reviewed and negative Cardiac: reports: Reviewed and negative Respiratory: reports: Dyspnea GI: reports: Reviewed and negative : reports: Reviewed and negative Skin: reports: Reviewed and negative Musculoskeletal: reports: Extremity swelling Neurologic: reports: Generalized weakness Psychiatric: reports: Reviewed and negative Endocrine: reports: Reviewed and negative Immunocompromised: reports: Reviewed and negative PD PAST MEDICAL HISTORY - Past Medical History Past Medical History: Yes Cardiovascular: Hypertension Respiratory: None Neuro: None Endocrine/Autoimmune: None GI: None DEATH CLEARANCE COORDINATOR: None : Other HEENT: Chronic vision loss Psych: None Musculoskeletal: None, Other Derm: None - Past Surgical History Past Surgical History: Yes /DEATH CLEARANCE COORDINATOR: Hysterectomy - Present Medications Home Medications: Ambulatory Orders Medication Instructions Recorded Confirmed Aspirin [Dales Aspirin] 81 mg PO DAILY 08/13/22 08/13/22 Ferrous Sulfate 325 mg PO DAILY 08/13/22 08/13/22 Mecobalamin [B12 Active] 1,000 mcg PO DAILY 08/13/22 08/13/22 Spironolactone [Aldactone] 25 mg PO DAILY PM 08/13/22 08/13/22 Torsemide 100 mg PO BID 08/13/22 08/13/22 amLODIPine [Norvasc] 5 mg PO DAILY PM 08/13/22 08/13/22 carvediloL [Coreg] 12.5 mg PO BID 08/13/22 08/13/22 - Allergies Allergies/Adverse Reactions: Allergies Allergy/AdvReac Type Severity Reaction Status Date / Time No Known Drug Allergies Allergy Verified 08/13/22 06:55 - Social History Does the pt smoke?: No Smoking Status: Never smoker Does the pt drink ETOH?: No Does the pt have substance abuse?: No - Immunizations Immunizations are current?: Yes - POLST Patient has POLST: No PD ED PE NORMAL - Vitals Vital signs reviewed: Yes - General General: No acute distress, Well developed/nourished, Other (The patient is alert and answers questions.) - HEENT HEENT: Atraumatic, PERRL, EOMI, Moist mucous membranes - Neck Neck: Supple, no meningeal sign - Cardiac Cardiac: RRR, No murmur, Strong equal pulses - Respiratory Respiratory: Clear bilaterally, Other (The patient is not in distress but is mildly tachypneic) - Abdomen Abdomen: Soft, Non tender, Non distended - Derm Derm: Warm and dry, No rash, Other (Marked pallor) - Extremities Extremities: No deformity, Other (2+ pitting edema bilateral ankles, resolving with ascension toward knees.) - Neuro Neuro: chief recordist 2-12 intact, Normal speech, Other (The patient is alert and answers questions appropriately. She is grossly oriented but has difficulty with remembering finer details of her medical history.) - Psych Psych: Normal mood, Normal affect Results - Vitals Vitals: Vital Signs - 24 hr 08/13/22 08/13/22 08/13/22 06:53 10:27 10:43 Temperature 37.4 C 37.2 C 37.0 C Heart Rate 85 Heart Rate [ 85 86 Monitoring electrodes] Respiratory 18 21 29 H Rate Blood Pressure 174/108 H Blood Pressure 173/103 H 178/109 H [Right Brachial artery] O2 Saturation 100 100 If not protocol 1 1 : Oxygen Flow, liters/minute 12/28/22 12/28/22 12/28/22 11:00 11:30 12:43 Temperature Heart Rate 85 84 81 Heart Rate [ Monitoring electrodes] Respiratory 28 H 29 H 16 Rate Blood Pressure 171/102 H 178/105 H 169/100 H Blood Pressure [Right Brachial artery] O2 Saturation 100 100 98 If not protocol 1 1 1 : Oxygen Flow, liters/minute 08/13/22 08/13/22 08/13/22 13:48 13:55 14:00 Temperature 37.0 C 36.5 C 36.5 C Heart Rate 78 Heart Rate [ 80 83 Monitoring electrodes] Respiratory 16 30 H 18 Rate Blood Pressure 174/100 H Blood Pressure 160/90 H 174/100 H [Right Brachial artery] O2 Saturation 100 100 100 If not protocol 1 1 1 : Oxygen Flow, liters/minute 08/13/22 08/13/22 08/13/22 14:12 14:51 16:00 Temperature 36.5 C 36.5 C 36.8 C Heart Rate 74 87 Heart Rate [ 78 Monitoring electrodes] Respiratory 18 18 28 H Rate Blood Pressure 172/100 H 167/110 H Blood Pressure 174/100 H [Right Brachial artery] O2 Saturation 100 99 99 If not protocol 1 1 1 : Oxygen Flow, liters/minute 08/13/22 08/13/22 17:09 17:10 Temperature 36.8 C 36.8 C Heart Rate Heart Rate [ 88 88 Monitoring electrodes] Respiratory 24 24 Rate Blood Pressure Blood Pressure 150/90 H 150/90 H [Right Brachial artery] O2 Saturation 100 100 If not protocol 1 1 : Oxygen Flow, liters/minute Oxygen O2 Source Nasal cannula Oxygen Flow Rate 2 - Labs Labs: Laboratory Tests 08/13/22 08/13/22 08/13/22 07:19 07:19 07:19 WBC 8.4 RBC 1.89 L Hgb 6.5 L* Hct 19.8 L* MCV 104.8 H MCH 34.4 H MCHC 32.8 RDW 15.0 Plt Count 131 MPV 10.4 Neut # (Auto) 7.1 H Lymph # (Auto) 0.5 L [place] # (Auto) 0.6 Eos # (Auto) 0.2 Baso # (Auto) 0.0 Absolute Nucleated RBC 0.00 Nucleated RBC % 0.0 VBG pH 7.420 H VBG pCO2 30.5 L VBG pO2 77.4 H VBG HCO3 19.4 L VBG Total CO2 20.3 L VBG O2 Saturation 94.4 H VBG Base Excess -4.5 L Sodium 138 Potassium 5.0 Chloride 102 Carbon Dioxide 19 L Anion Gap 17.0 H BUN 109 H* Creatinine 7.0 H* Estimated GFR (MDRD) 6 L Glucose 104 H Calcium 7.9 L Total Bilirubin 0.7 AST 24 ALT 10 Alkaline Phosphatase 37 L B-Natriuretic Peptide Total Protein 6.1 L Albumin 3.2 Globulin 2.9 Albumin/Globulin Ratio 1.1 Lipase 122 H Nasal Adenovirus (PCR) Nasal B. parapertussis DNA (PCR) Nasal Coronavir 229E PCR Nasal Coronavir HKU1 PCR Nasal Coronavir NL63 PCR Nasal Coronavir OC43 PCR Nasal Enterovir/Rhinovir PCR Nasal Influenza B PCR Nasal Influenza A PCR Nasal Parainfluen 1 PCR Nasal Parainfluen 2 PCR Nasal Parainfluen 3 PCR Nasal Parainfluen 4 PCR Nasal RSV (PCR) Nasal B.pertussis DNA PCR Nasal C.pneumoniae (PCR) Ulices Human Metapneumo PCR Nasal M.pneumoniae (PCR) Nasal SARS-CoV-2 (PCR) Blood Type Blood Type Recheck Antibody Screen Crossmatch IS Only 08/13/22 08/13/22 08/13/22 07:19 08:29 08:33 WBC RBC Hgb Hct MCV MCH MCHC RDW Plt Count MPV Neut # (Auto) Lymph # (Auto) [place] # (Auto) Eos # (Auto) Baso # (Auto) Absolute Nucleated RBC Nucleated RBC % VBG pH VBG pCO2 VBG pO2 VBG HCO3 VBG Total CO2 VBG O2 Saturation VBG Base Excess Sodium Potassium Chloride Carbon Dioxide Anion Gap BUN Creatinine Estimated GFR (MDRD) Glucose Calcium Total Bilirubin AST ALT Alkaline Phosphatase B-Natriuretic Peptide 3922 H Total Protein Albumin Globulin Albumin/Globulin Ratio Lipase Nasal Adenovirus (PCR) NOT DETECTED Nasal B. parapertussis DNA (PCR) NOT DETECTED Nasal Coronavir 229E PCR NOT DETECTED Nasal Coronavir HKU1 PCR NOT DETECTED Nasal Coronavir NL63 PCR NOT DETECTED Nasal Coronavir OC43 PCR NOT DETECTED Nasal Enterovir/Rhinovir PCR NOT DETECTED Nasal Influenza B PCR NOT DETECTED Nasal Influenza A PCR NOT DETECTED Nasal Parainfluen 1 PCR NOT DETECTED Nasal Parainfluen 2 PCR NOT DETECTED Nasal Parainfluen 3 PCR NOT DETECTED Nasal Parainfluen 4 PCR NOT DETECTED Nasal RSV (PCR) NOT DETECTED Nasal B.pertussis DNA PCR NOT DETECTED Nasal C.pneumoniae (PCR) NOT DETECTED Ulices Human Metapneumo PCR NOT DETECTED Nasal M.pneumoniae (PCR) NOT DETECTED Nasal SARS-CoV-2 (PCR) NOT DETECTED Blood Type O POSITIVE Blood Type Recheck Antibody Screen NEGATIVE Crossmatch IS Only See Detail 08/13/22 08/13/22 09:34 17:26 WBC 8.6 RBC 3.00 L Hgb 9.1 L Hct 27.7 L MCV 92.3 MCH 30.3 MCHC 32.9 RDW 21.8 H Plt Count 114 L MPV 10.0 Neut # (Auto) 7.3 H Lymph # (Auto) 0.5 L [place] # (Auto) 0.6 Eos # (Auto) 0.1 Baso # (Auto) 0.0 Absolute Nucleated RBC 0.00 Nucleated RBC % 0.0 VBG pH VBG pCO2 VBG pO2 VBG HCO3 VBG Total CO2 VBG O2 Saturation VBG Base Excess Sodium Potassium Chloride Carbon Dioxide Anion Gap BUN Creatinine Estimated GFR (MDRD) Glucose Calcium Total Bilirubin AST ALT Alkaline Phosphatase B-Natriuretic Peptide Total Protein Albumin Globulin Albumin/Globulin Ratio Lipase Nasal Adenovirus (PCR) Nasal B. parapertussis DNA (PCR) Nasal Coronavir 229E PCR Nasal Coronavir HKU1 PCR Nasal Coronavir NL63 PCR Nasal Coronavir OC43 PCR Nasal Enterovir/Rhinovir PCR Nasal Influenza B PCR Nasal Influenza A PCR Nasal Parainfluen 1 PCR Nasal Parainfluen 2 PCR Nasal Parainfluen 3 PCR Nasal Parainfluen 4 PCR Nasal RSV (PCR) Nasal B.pertussis DNA PCR Nasal C.pneumoniae (PCR) Ulices Human Metapneumo PCR Nasal M.pneumoniae (PCR) Nasal SARS-CoV-2 (PCR) Blood Type Blood Type Recheck O POSITIVE Antibody Screen Crossmatch IS Only PD Medical Decision Making - ED course Complexity details: reviewed old records, reviewed results, re-evaluated patient, considered differential, d/w patient, d/w family ED course: The patient was worked up with labs, All of which were reviewed by me and compared with old values, including an ER abdominal panel, which showed a BUN of 109 and creatinine of 7. This was consistent with the patient's labs from yesterday, but markedly elevated compared to her creatinine 1 month ago. CBC showed a hemoglobin of 6.5, which was up from 5.6 yesterday, but well below the patient's baseline of 7-8. Chest x-ray was performed and showed cardiomegaly with congestive heart failure. I initially ordered 2 units of blood to be transfused and ordered an inch of nitroglycerin paste for the patient. I was able to ultimately speak with her preforming machine operator, Dr. 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 The patient has been on torsemide and spironolactone, as well as rituximab, but Dr. Smart stated that the rituximab would take a couple of months to work. He felt that the pulmonary edema and decrease of GFR/uptick in creatinine were both likely due to the very low hemoglobin. His recommendation was that the patient receive a total of 3 units of packed red blood cells with every 8 hour Lasix 100 mg IV. He felt that since her blood pressure was elevated, she would be able to perfuse the kidneys enough to cause the Lasix to be helpful. He did feel that the patient would be best off being transferred to [facility]; however we did contact [facility] and they stated that while they would like to take her as she is their patient, they do not have any beds at this time. The rest of the hospitals within a few hours of here that have the necessary services for this patient are all full and not accepting further patients of her acuity. The patient at this time has received 1 dose of Lasix and will receive her next 1 in about 1 hour from the time this dictation is taking place. She has had improvement of her hemoglobin to 9 after the first 2 units of blood. She is just getting sta rted on her third at this time. She has had good oxygen saturations throughout her entire stay, and has been without complaints. She will be signed out to Dr. Magallanes, pending the above treatments, repeat lab panel and chest x-ray, and possible transfer versus improvement. - Critical Care Time(min): 40 Comments: Critical care time was necessary, due to acute life-threatening condition with high probability of imminent decline and , secondary to severe anemia, acute renal failure, and acute congestive heart failure exacerbation. Time Includes: Direct patient care, Review records, Reassess patient, Document care, Coordinate care, Medical consult, Family consult for tx dec, See progress note Data interpretation: Labs, Pulse ox, ABG, CXR, Cardiac output, See progress note Departure - Departure Disposition: 02 Transfer Acute Care Hosp Clinical Impression: Severe anemia Acute exacerbation of CHF (congestive heart failure) Qualifiers: Heart failure type: unspecified Qualified Code(s): I50.9 - Heart failure, unspecified Acute on chronic renal failure Qualifiers: Acute renal failure type: unspecified Chronic kidney disease stage: stage 4 (severe) Qualified Code(s): N17.9 - Acute kidney failure, unspecified Condition: Serious
--- NOTE | 2022-08-13 08:11 | XRAY Report ---
PROCEDURE: Chest 1 View X-Ray INDICATIONS: dyspnea TECHNIQUE: One view of the chest was acquired. COMPARISON: None. FINDINGS: Surgical changes and devices: None. Lungs and pleura: Ill-defined airspace opacities are seen throughout bilateral lung logan which may represent pulmonary edema. Underlying pulmonary infiltrates cannot be excluded. Small bilateral pleu ral effusion are noted. No gross pneumothorax. Pulmonary vascular congestion is seen. Mediastinum: Mediastinal contours appear normal. Heart size is enlarged. Bones and chest wall: No suspicious bony lesions. Overlying soft tissues appear unremarkable. IMPRESSION: Finding is suggestive of CHF. Underlying bilateral small infiltrates cannot be entirely excluded. No pneumothorax. No significant discrepancies. Reviewed by: Trey Seay MD on 08/13/2022 8:10 AM [facility] Approved by: Trey Seay MD on 08/13/2022 8:10 AM [facility] Station ID: [id number]
[2022-08-13 09:37] LABS: B. PARAPERTUSSIS- RESP PCR PAN NOT DETECTED; B. PERTUSSIS- RESP PCR PANEL NOT DETECTED; C. PNEUMONIAE- RESP PCR PANEL NOT DETECTED; CORONAVIRUS 229E-RESP PCR NOT DETECTED; CORONAVIRUS HKU1-RESP PCR NOT DETECTED; CORONAVIRUS NL63-RESP PCR NOT DETECTED; CORONAVIRUS OC43-RESP PCR NOT DETECTED; HUMAN METAPNEUMOVIRUS NOT DETECTED; INFLUENZA A- RESP PCR PANEL NOT DETECTED; INFLUENZA B - RESP PCR PANEL NOT DETECTED; M. PNEUMONIAE- RESP PCR PANEL NOT DETECTED; PARAINFLUENZA VIRUS 1 NOT DETECTED; PARAINFLUENZA VIRUS 2 NOT DETECTED; PARAINFLUENZA VIRUS 3 NOT DETECTED; PARAINFLUENZA VIRUS 4 NOT DETECTED; RHINOVIRUS/ENTEROVIRUS NOT DETECTED; RSV- RESP PCR PANEL NOT DETECTED; SARS-CoV-2 -RESP PCR PANEL NOT DETECTED
[2022-08-13] MEDS ORDERED: NITROGLYCERIN 2% PASTE TOP STA (10:24)
[2022-08-13] MEDS ORDERED: FUROSEMIDE 100 MG/10 ML VIAL IVP STA (11:15)
[2022-08-13 17:33] LABS: BASOPHILS % (AUTO) 0.5 %; EOSINOPHILS # (AUTO) 0.1 10^3/uL (0.0-0.7); EOSINOPHILS % (AUTO) 1.4 %; HCT - HEMATOCRIT 27.7 % (37.0-47.0); HGB - HEMOGLOBIN 9.1 g/dL (12.0-16.0); LYMPHOCYTES # (AUTO) 0.5 10^3/uL (1.5-3.5); LYMPHOCYTES % (AUTO) 5.8 %; MEAN CORPUSCULAR HEMOGLOBIN 30.3 pg (27.0-31.0); MEAN CORPUSCULAR HGB CONC 32.9 g/dL (32.0-36.0); MEAN CORPUSCULAR VOLUME 92.3 fL (81.0-99.0); MONOCYTES # (AUTO) 0.6 10^3/uL (0.0-1.0); MONOCYTES % (AUTO) 7.2 %; NEUTROPHILS # (AUTO) 7.3 10^3/uL (1.5-6.6); NEUTROPHILS % (AUTO) 84.5 %; PLT - PLATELET COUNT 114 10^3/uL (130-450); RED CELL DISTRIBUTION WIDTH 21.8 % (12.0-15.0); WHITE BLOOD COUNT 8.6 x10^3/uL (4.8-10.8)
[2022-08-13] MEDS ORDERED: ONDANSETRON 4 MG/2 ML VIAL IVP PRN (18:16)
[2022-08-13] MEDS ORDERED: ACETAMINOPHEN 500 MG TABLET PO PRN (18:16)
[2022-08-13 18:28] LABS: PLATELET ESTIMATE, MANUAL DECREASED (<130,000) (NORMAL); PLATELET MORPHOLOGY NORMAL APPEARANCE (NORMAL); SLIDE REVIEW? Indicated
[2022-08-13] MEDS: FUROSEMIDE 100 MG/10 ML VIAL IVP SCH (21:02)
--- NOTE | 2022-08-13 22:06 | ED Physician Documentation ---
ED Addendum - Addendum Addendum: 08/13/22 22:05 Stable at this point, no response from potential transferring facilities about bed availability due to region wide bed shortage she continues to board in the emergency department. Vital signs looking good. We will repeat labs in the morning. Care to overnight EDMD at shift change.
[2022-08-13 23:31] LABS: HCT - HEMATOCRIT 31.9 % (37.0-47.0); HGB - HEMOGLOBIN 10.4 g/dL (12.0-16.0)
[2022-08-13 23:50] LABS: POTASSIUM 4.8 mmol/L (3.5-5.0)
[2022-08-13 23:53] LABS: CREATININE 7.4 mg/dL (0.4-1.0)
--- NOTE | 2022-08-14 00:24 | ED Physician Documentation ---
ED Addendum - Addendum Addendum: 08/14/22 00:21 I was asked to evaluate patient for increasing dyspnea. Patient is in NAD on my evaluation although she does frequently have to pause mid-sentence to take a breath. She has grossly audible course rales that can be heard when standing at the bedside. She has just completed her third transfusion of packed red blood cells. Her subsequent repeat hemoglobin is 10.4, up from 9.1 on previous. Unfortunately, her BUN is the same as previous at 109. Furthermore, her repeat creatinine is 7.4, increased from previous which was 7.0. She is mildly tachypneic on my exam. She has a 95 to 96% pulse ox on 5 L of nasal cannula. We will try her on CPAP to see if this (PEEP) helps with her pulmonary edema. She is due to get some more Lasix within the next few hours, as well.
[2022-08-14] MEDS ORDERED: LORazepam 2 MG/ML VIAL IVP STA ×3 (00:56→16:14)
[2022-08-14] MEDS: FUROSEMIDE 100 MG/10 ML VIAL IVP SCH ×2 (04:26→14:11)
[2022-08-14 05:14] LABS: BASOPHILS % (AUTO) 0.4 %; EOSINOPHILS % (AUTO) 0.1 %; HCT - HEMATOCRIT 30.8 % (37.0-47.0); HGB - HEMOGLOBIN 10.3 g/dL (12.0-16.0); LYMPHOCYTES # (AUTO) 0.2 10^3/uL (1.5-3.5); LYMPHOCYTES % (AUTO) 1.8 %; MEAN CORPUSCULAR HEMOGLOBIN 30.7 pg (27.0-31.0); MEAN CORPUSCULAR HGB CONC 33.4 g/dL (32.0-36.0); MEAN CORPUSCULAR VOLUME 91.9 fL (81.0-99.0); MEAN PLATELET VOLUME 10.4 fL (7.9-10.8); MONOCYTES # (AUTO) 0.5 10^3/uL (0.0-1.0); MONOCYTES % (AUTO) 4.7 %; NEUTROPHILS # (AUTO) 9.7 10^3/uL (1.5-6.6); NEUTROPHILS % (AUTO) 92.3 %; PLT - PLATELET COUNT 93 10^3/uL (130-450); RED BLOOD COUNT 3.35 10^6/uL (4.20-5.40); RED CELL DISTRIBUTION WIDTH 21.3 % (12.0-15.0); WHITE BLOOD COUNT 10.5 x10^3/uL (4.8-10.8)
[2022-08-14 05:33] LABS: SLIDE REVIEW? Indicated
[2022-08-14 05:35] LABS: PLATELET ESTIMATE, MANUAL DECREASED (<130,000) (NORMAL); PLATELET MORPHOLOGY NORMAL APPEARANCE (NORMAL); WBC MORPHOLOGY (MULTIPLE) NORMAL APPEARANCE (NORMAL)
[2022-08-14 05:46] LABS: POTASSIUM 5.1 mmol/L (3.5-5.0)
[2022-08-14 05:49] LABS: CREATININE 7.5 mg/dL (0.4-1.0)
[2022-08-14] MEDS ORDERED: PANTOPRAZOLE 40 MG TABLET PO SCH (07:00)
[2022-08-14] MEDS: NITROGLYCERIN 2% PASTE TOP SCH ×3 (07:50→21:36)
--- NOTE | 2022-08-14 08:14 | XRAY Report ---
PROCEDURE: Chest 1 View X-Ray INDICATIONS: dyspnea TECHNIQUE: One view of the chest was acquired. COMPARISON: 08/13/2022. FINDINGS: Surgical changes and devices: None. Lungs and pleura: There is interval worsening of bilateral lung aeration with increased airspace opa cities throughout bilateral lung logan. Small bilateral pleural effusion is likely present. No gross pneumothorax. Mediastinum: Mediastinal contours appear normal. Heart size is enlarged. Bones and chest wall: No suspicious bony lesions. Overlying soft tissues appear unremarkable. IMPRESSION: Interval worsening of bilateral lung aeration with increased airspace opacities in bilateral lung fie lds. Finding is concerning of worsening pulmonary edema versus extensive bilateral pulmonary infiltra edgardo. No pneumothorax. Small bilateral pleural effusion. Reviewed by: Trey Seay MD on 08/14/2022 8:13 AM PST Approved by: Trey Seay MD on 08/14/2022 8:13 AM PST Station ID: [id number]
[2022-08-14] MEDS: PANTOPRAZOLE 40 MG VIAL IVP SCH (08:23)
--- NOTE | 2022-08-14 10:56 | CONSULTATION NOTE ---
Referring Provider Name of Referring Provider:: Dr Roach, ED provider Consult Date: 08/14/22 Chief Complaint - Chief Complaint Chief Complaint: shortness of air History of Present Illness - History Obtained From Records Reviewed: [employer] EMR - History of Present Illness HPI Comment/Other: This is a 71-year-old white female with a history of hypertension, has been most recently on valsartan, previously on Hydrodiuril. She has a history of membranous glomerulonephritis with her last creatinine 1.9 approximately a month ago. She was followed by nephrology here at [facility] and now sees Dr. Israel Smart nephrology at [facility]. The patient was told she will need dialysis sometime in the future but not currently as she was not oliguric. The patient had biopsy- proven membranous nephropathy and has been on Cytoxan in the past that was not tolerated. She is now on Rituxan. Sometime in 2019 she also had W/U for chronic cough and a chest CT scan was read as having pulmonary fibrosis and the patient has been on ProAir and Ventolin. Patient presented to the ER yesterday with complaints of worsening shortness of breath. She had work-up in the ER showing a creatinine of 7 and was hypoxic and put on 2 L of oxygen. Her Hgb was 6.5. The ED provider reached out to the [facility] who wanted to accept her in transfer however no beds were open at [facility] or other [facility]. The Printer Apprentice recommended that she get 3 units of blood transfused along with IV Lasix 100 mg 3 times daily. This was ordered. She has had no urine output since presenting to the ED, has a Harrell in place. Her bladder has been scanned and only has approximately 140 mL about 7 hours ago. The patient has been boarding in the ED and at approximately 2300 last night she developed worsening shortness of breath. Chest x-ray was repeated and this showed pulmonary edema. She required being put on BiPAP at 100% FiO2 and despite this she is still short of breath. A repeat creat this morning is 7.5. Her BNP went from 3050 yesterday to 8000 today. A troponin today is 1922. Her Hgbhas risen to 10.3 today. The ED provider Dr. Roach has asked for a stat Echo as well as a Hospitalist consult to be done in the ED. The patient is currently laying in a Left lateral decubitus position with HOB elevated, in a gurney getting her bedside Echo done. She appears to be in moderate respiratory distress and is wearing her BiPAP mask. The is at bedside and confirms the above diagnosis and wants her transferred. There is no POLST scanned in the chart, by default she is a Full Code, therefore. Her BP is 160/110, HR 80 in NSR, resp rate is 35 and O2 saturation is 91%. History - Past Medical History Cardiovascular: reports: Hypertension Respiratory: reports: Other (Pulmonary fibrosis by 2021 CT chest, takes inhalers) Neuro: reports: None Endocrine/Autoimmune: reports: None, Other (Glomerulonephritis) GI: reports: None SAMPLE PREPARATION SUPERVISOR: reports: None : reports: Other HEENT: reports: Chronic vision loss Psych: reports: None Musculoskeletal: reports: None, Other Derm: reports: None MRSA Hx?: No - Past Surgical History General: reports: Other (Hernia repair) /SAMPLE PREPARATION SUPERVISOR: reports: Hysterectomy - Family & Social History Family History Comment/Other: Cannot obtain as pt in significant distress Living arrangement: At home Living Situation: With spouse/s.o. Social History Notes: Cannot obtain as pt in significant distress - POLST Patient has POLST: No Meds/Allgy - Home Medications Home Medications: Ambulatory Orders Medication Instructions Recorded Confirmed Aspirin [[place] Aspirin] 81 mg PO DAILY 08/13/22 08/13/22 Ferrous Sulfate 325 mg PO DAILY 08/13/22 08/13/22 Mecobalamin [B12 Active] 1,000 mcg PO DAILY 08/13/22 08/13/22 Spironolactone [Aldactone] 25 mg PO DAILY PM 08/13/22 08/13/22 Torsemide 100 mg PO BID 08/13/22 08/13/22 amLODIPine [Norvasc] 5 mg PO DAILY PM 08/13/22 08/13/22 carvediloL [Coreg] 12.5 mg PO BID 08/13/22 08/13/22 - Allergies Allergies/Adverse Reactions: Allergies Allergy/AdvReac Type Severity Reaction Status Date / Time No Known Drug Allergies Allergy Verified 08/13/22 06:55 Review of Systems - Respiratory Respiratory: reports: Orthopnea, SOB at rest - All Other Systems All Other Systems: reports: Other (Cannot obtain detailed ROS as pt in significant distress) Exam - Vital Signs Vital Signs: Vital Signs x48h Pulse Resp BP Pulse Ox O2 Flow Rate 08/14/22 09:35 77 36 H 166/110 H 100 50 08/14/22 08:19 82 08/14/22 07:00 78 27 H 162/112 H 100 50 08/14/22 05:50 76 08/14/22 04:24 75 38 H 160/106 H 96 08/14/22 03:30 77 2 08/14/22 03:05 79 38 H 155/106 H 98 - Physical Exam General Appearance: positive: Moderate distress (despitre wearing BIPAP and is on 100% FIO2) Eyes Bilateral: positive: Normal inspection Neck: positive: Other (Probably elevated JVP, patient is in left lateral decubitus position) Respiratory: positive: Other (Diminished breath sounds in all lung logan) Cardiovascular: positive: Regular rate & rhythm Abdomen: positive: No distention Extremities: positive: Other (Not visualized) Neurologic/Psychiatric: positive: Oriented x3 Conclusion/Plan - Problem List (1) Flash pulmonary edema Conclusion/Plan: The last clinic note available is from 07/14/2022 from [facility] that says her only medication is Valsartan. However, the pharmacy reconciled med list shows that she has been taking carvedilol, spironolactone, and Lasix, which suggest she has a history of systolic heart failure. 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 I suspect that her anuria/oliguria caused the present volume overload and worsening pulmonary edema seen between chest x-ray 1 and chest x-ray 2. Plan: Agree with plan for transfer to a facility with higher level of care Continue supplemental oxygen to achieve a target saturation of at least 90%. Try to achieve LV preload reduction and diuresis. Agree with using Nitropaste. Recommend increasing dose of Lasix to 160 mg IV twice daily. Give metolazone 2.5 mg 30 minutes prior to those Lasix doses, which may give her some urine output. Would recommend continuing the beta-aren but not giving carvedilol (non-selec tive B-blocjer), due to her pulmonary fibrsis, but rather using a beta-1 selective agent such as Lopressor either p.o. or IV. I have ordered Lopressor 2.5 mg IV twice daily, so that she does not have to swallow and take off the BiPAP mask. Spironolactone is no longer useful with this very high creatinine, it will have no effect. Recommend cycling troponins, rechecking an EKG today (both of which I ordered), and continuing with the baby aspirin that you have started. Intermittent IV morphine 2 mg doses will also help relieve her air hunger, I have ordered that. (2) Acute renal failure with oliguria Conclusion/Plan: This patient has had a sudden worsening in her creatinine from 1.8 a month ago to 7 today. Unknown what nephrotoxin added to this worsening. Very elevated BNP's and first troponin could be from her severe renal failure Plan: Transfer for hemodialysis is necessary. If the ER [facility] has called hospitals directly, recommend also reaching out to [facility] who may be able to find her an accepting hospital. Continue with the Lasix, Metolazone, iv Morphine and NTP as described above Continue with Harrell for output and monitoring (3) Acute systolic heart failure Conclusion/Plan: She has had no prior Echoes here to know her ejection fraction. The patient is an extremis and cannot discuss any recent work-up. If her medication list is correct however then there must be a history of systolic heart failure in the past. Very elevated BNP's and first troponin could be from her severe renal failure Plan: Continue with management as described #1 (4) Pulmonary fibrosis Conclusion/Plan: As per records that were entered by her [facility] Printer Apprentice at his office visit June 2022 Plan: Recommend starting nebulized bronchodilators Avoid nonbeta-1 selective meds Steroids will probably not have any added benefit, and should be avoided if she is having an acute UT Meds such as Sildenafil also are not immediate acting (5) Membranous nephropathy determined by biopsy Conclusion/Plan: As per Hx. Very elevated BNP's and first troponin could be from her severe renal failure Plan: Continue with any medications, such as her Rituxan, if recommended by her [facility] Printer Apprentice. - Lab Results Fish Bones: 08/14/22 05:04 08/14/22 05:04 - Diagnostic Imaging Results Diagnostic Imaging Results: positive: Final report reviewed - EKG Results EKG Interpreted Independently: Yes EKG Comparison: Unchanged from prior EKG EKG Findings: NSR, rate 86, baseline wandering makes anterior ST segments appear slightly elevated, lateral T waves are biphasic. Since EKG from yesterday, the vertical axis is no longer seen, other changes are similar. - Other Other Results/Comments: Thank you for allowing me to participate the care of this patient
[2022-08-14] MEDS ORDERED: PERFLUTREN LIPID MICROSPHERES 1.65 MG/1.5 ML VIAL IVP ONE (11:06)
[2022-08-14] MEDS: METOPROLOL 5 MG/5 ML VIAL IVP SCH ×2 (11:32→18:37)
[2022-08-14] MEDS ORDERED: IPRATROPIUM/ALBUTEROL 3 ML NEB INH STA (13:09)
--- NOTE | 2022-08-14 13:16 | ED Physician Documentation ---
ED Addendum - Addendum Addendum: I took over care of this patient this morning from Dr. Hernandez. The patient has acute on chronic renal failure, has not had any significant urine output overnight. I ordered an echocardiogram this morning. She has a very elevated BNP, pulmonary edema and an elevated troponin. She is not having any chest pain but does have significant shortness of breath. Has a history of pulmonary fibrosis. We will trial her on a DuoNeb treatment for this in addition to her Lasix. She is currently on Lasix 100 mg IV 3 times daily. A Harrell catheter was placed. She is currently on BiPAP. I have also consulted the hospitalist, Dr. Liu. The patient's echocardiogram reveals a an EF of approximately 30% with global hypokinesis. Pulmonary hypertension as well. Dr. Liu recommends increasing the Lasix to 160 mg IV twice daily and added metolazone 2.5 mg IV. She is still having minimal urine output. I discussed the case with her wash house supervisor, Dr. Smart at [facility]. He recommends transfer for likely dialysis given her anuria. The patient is on waiting list from [place] down through [facility] in [place]. [facility] was also contacted this morning and she is on a waiting list of there. I recontacted [facility] 1:15 PM and they are trying to make a bed for this patient so that she can start dialysis. Dialysis is not available here. The patient and her were kept updated throughout the day. 08/14/22 17:49 Patient will be signed out to the [facility] emergency department physician. No beds are available anywhere from [place] to [place]. Discussed again with [facility], they will continue to work on a bed.
[2022-08-14] MEDS ORDERED: metOLazone 2.5 MG TABLET PO SCH (13:30)
[2022-08-14] MEDS: metOLazone 2.5 MG TABLET PO SCH (13:45)
[2022-08-14] MEDS ORDERED: methylPREDNISolone SUCCINATE 40 MG/ML VIAL IVP SCH (14:00)
[2022-08-14] MEDS ORDERED: FUROSEMIDE 100 MG/10 ML VIAL IVP SCH (14:00)
[2022-08-14] MEDS: methylPREDNISolone SUCCINATE 125 MG/2 ML VIAL IVP SCH (14:11)
[2022-08-14] MEDS ORDERED: MULTIPLE ELECTROLYTES IV ONE (15:36)
[2022-08-14] MEDS ORDERED: MORPHINE 2 MG/ML CARPUJECT IVP STA (16:34)
[2022-08-14] MEDS: ELECTROLYTE-A SOLUTION 1,000 ML IV SCH (17:15)
--- NOTE | 2022-08-14 17:51 | ED Physician Documentation ---
ED Addendum - Addendum Addendum: 08/14/22 17:[address] Roach at 6 PM shift change. Briefly this is a lady who has chronic renal insufficiency and now has significant UZMA associated with anemia. At this juncture she has been transfused a total of 3 units with appropriate response to her hemoglobin. That said her UZMA has worsened with her creatinine trending up and now positive troponins and very positive BNP's. A Harrell has been placed and she is an uric. She has had some respiratory difficulty and is currently on BiPAP at 10/5. She has required some sedation and anxiolysis for this. Her supportive is at the bedside. Unfortunately there are currently no beds available at [facility] or any other facility capable of Nephrology consultation and intervention. [facility] understands that she is now critically ill and is trying to make a bed for her. CODE STATUS discussed with and she is full code and he would like aggressive interventions pending transfer. 08/14/22 20:44 So far throughout my shift she has become more obtunded, at this point is minimally responsive and her volumes on BiPAP were very low. At that point decision to intubate was made. In the interim scheduled call this back and said they would not be able to accommodate this patient in transfer, and I presented the case to the transfer nurse at the [facility]. I tried calling the to give an update, there was no answer I left a voicemail. I called the senior front end developer and reportedly is not in the lobby. Procedure note: Intubation She was preoxygenated and then given 100 mg of propofol and 20 mg of rocuronium. She was intubated with a glide scope with a 7.0 cuffed endotracheal tube to 21 Centimeters at the lips. She tolerated this well. Placement was confirmed with bilateral breath sounds and no abdominal sounds as well as end-tidal CO2. Procedure note, central line: Consent was not obtainable due to patient's altered mental status, acuity, and inability to reach the . The patient was prepped twice with ChloraPrep. I wore cap, mask, gown, sterile gloves. Full sterile sheet was utilized. Using real-time ultrasound guidance the right internal jugular vein was accessed and using Seldinger technique a triple-lumen 7 [place]araguan central line was placed in standard fashion and sutured into place without immediate complications. 08/14/22 21:19 Surgical changes and devices: Right-sided central venous catheter is present with distal tip projecting over the right atrial junction. Endotracheal tube is present approximately 2.8 cm superior to the makayla. Nasogastric tube is present projecting below the left hemidiaphragm Critical care time: 40 minutes, mostly in direct patient care but also discussion with the . This is independent of intubation and central line placement. 08/14/22 22:[address] Lee at 10 PM shift change pending callback from Azul SANTIAGO
[2022-08-14 18:47] LABS: BASOPHILS % (AUTO) 0.2 %; EOSINOPHILS % (AUTO) 0.1 %; HCT - HEMATOCRIT 30.9 % (37.0-47.0); HGB - HEMOGLOBIN 10.2 g/dL (12.0-16.0); LYMPHOCYTES # (AUTO) 0.2 10^3/uL (1.5-3.5); LYMPHOCYTES % (AUTO) 1.4 %; MEAN CORPUSCULAR HEMOGLOBIN 30.6 pg (27.0-31.0); MEAN CORPUSCULAR VOLUME 92.8 fL (81.0-99.0); MEAN PLATELET VOLUME 9.9 fL (7.9-10.8); MONOCYTES # (AUTO) 0.1 10^3/uL (0.0-1.0); NEUTROPHILS # (AUTO) 13.3 10^3/uL (1.5-6.6); NEUTROPHILS % (AUTO) 96.6 %; PLT - PLATELET COUNT 101 10^3/uL (130-450); RED BLOOD COUNT 3.33 10^6/uL (4.20-5.40); RED CELL DISTRIBUTION WIDTH 20.9 % (12.0-15.0); WHITE BLOOD COUNT 13.8 x10^3/uL (4.8-10.8)
[2022-08-14 18:51] LABS: VBG PCO2 58.4 mmHg (41-51)
[2022-08-14 18:52] LABS: VBG BASE EXCESS -9.3 mmol/L (-2 - +2); VBG HCO3 19.7 mmol/L (23-28); VBG OXYGEN SATURATION 91.3 % (60-80); VBG TOTAL CO2 21.5 mmol/L (24-29)
[2022-08-14 18:53] LABS: VBG PH 7.147 (7.31-7.41)
[2022-08-14 19:13] LABS: PLATELET ESTIMATE, MANUAL DECREASED (<130,000) (NORMAL); PLATELET MORPHOLOGY NORMAL APPEARANCE (NORMAL); SLIDE REVIEW? Indicated
[2022-08-14 19:29] LABS: CALCIUM 7.8 mg/dL (8.5-10.3); MAGNESIUM 2.2 mg/dL (1.7-2.8); PHOSPHORUS 11.9 mg/dL (2.5-4.6); POTASSIUM 5.2 mmol/L (3.5-5.0)
[2022-08-14 19:31] LABS: CREATININE 7.8 mg/dL (0.4-1.0)
[2022-08-14] MEDS ORDERED: PROPOFOL 200 MG/20 ML VIAL IVP STA (20:04)
[2022-08-14] MEDS ORDERED: fentaNYL 2,500 MCG in SODIUM CHLORIDE 0.9% 200 ML IV STA (20:04)
[2022-08-14] MEDS ORDERED: ROCURONIUM 50 MG/5 ML VIAL IVP STA (20:04)
[2022-08-14] MEDS ORDERED: PROPOFOL 1000 MG/100 ML 1,000 MG/100 ML BOTTLE IV STA (20:04)
--- NOTE | 2022-08-14 21:13 | XRAY Report ---
PROCEDURE: Chest for Line Placement INDICATIONS: ETT/RIJ CVC/NGT TECHNIQUE: One view of the chest was acquired. COMPARISON: None. FINDINGS: Surgical changes and devices: Right-sided central venous catheter is present with distal tip project ing over the right atrial junction. Endotracheal tube is present approximately 2.8 cm superior to the makayla. Nasogastric tube is present projecting below the left hemidiaphragm Lungs and pleura: Bilateral pulmonary opacities relatively unchanged. Mediastinum: Mediastinal contours appear normal. Heart size is normal. Bones and chest wall: No suspicious bony lesions. Overlying soft tissues appear unremarkable. IMPRESSION: Support lines as above. Diffuse bilateral pulmonary opacities suggestive of pneumonia and/or edema. Reviewed by: Liat Washington MD on 08/14/2022 9:12 PM PST Approved by: Liat Washington MD on 08/14/2022 9:12 PM PST Station ID: [id number]
[2022-08-14 21:14] LABS: ABG PCO2 43 mmHg (34-45); ABG PH 7.24 (7.35-7.45)
[2022-08-14 21:15] LABS: ABG BASE EXCESS -8.5 mmol/L (-2.0-3.0); ABG HCO3 18.3 mmol/L (22.0-26.0); ABG OXYGEN SATURATION 99 % (94-98); ABG TCO2 19.6 MMOL/L (21.0-29.0); ALLEN TEST POSITIVE
[2022-08-14 21:16] LABS: ABG MODE OF VENTILATION ASSIST/CONTROL; ABG PO2 257 mmHg (80-100); ABG RESPIRATORY RATE 16 b/min
[2022-08-15] MEDS ORDERED: PROPOFOL 1000 MG/100 ML 1,000 MG/100 ML BOTTLE IV ONE ×2 (02:53→11:01)
[2022-08-15 05:59] LABS: CALCIUM 7.6 mg/dL (8.5-10.3); PHOSPHORUS 10.8 mg/dL (2.5-4.6); POTASSIUM 4.7 mmol/L (3.5-5.0)
--- NOTE | 2022-08-15 05:59 | ED Physician Documentation ---
ED Addendum - Addendum Addendum: 08/15/22 05:56 The patient was signed out to me at change of shift by Dr. Arciniega, continuing to pend transfer to a facility with the higher level of specialty care the patient needs. She has steadily worsened in terms of her CHF and renal failure, and required first BiPAP and then intubation prior to my assumption of care. The patient also has had worsening of her kidney labs and of her BNP, and her mental status had steadily worsened, prior to intubation and BiPAP. I was infor med during the night the the patient has been bumped up to first place on the waiting list for [facility] and they are hopeful that she will get a bed sometime soon. At this point in time, I have not heard further in this regard, and the patient will continue to board here while we manage her complicated needs as best we can. She has been stable overnight and will be signed out to Dr. Simpson at change of shift.
[2022-08-15 06:03] LABS: CREATININE 7.8 mg/dL (0.4-1.0)
[2022-08-15] MEDS: FUROSEMIDE 100 MG/10 ML VIAL IVP SCH ×2 (06:24→14:13)
[2022-08-15] MEDS: metOLazone 2.5 MG TABLET PO SCH ×2 (06:31→14:13)
[2022-08-15] MEDS: methylPREDNISolone SUCCINATE 125 MG/2 ML VIAL IVP SCH ×3 (06:38→14:13)
[2022-08-15] MEDS: NITROGLYCERIN 2% PASTE TOP SCH (08:09)
--- NOTE | 2022-08-15 08:48 | ED Physician Documentation ---
ED Addendum - Addendum Addendum: 08/15/22 08:45 Patient seen earlier in the shift after signout. Lungs are showing some fine crackles in the bases. No coarse sounds noted. Some mild expiratory wheezes centrally. Ventilator management looks good with easy air flow and good end- tidal end-tidal CO2 tracing. Oxygenation level is good. We will recheck blood gas in a few hours. Harrell catheter is in place and there appears to be approximately 250 mL of light-colored urine in the bag. There is a little bit of urine output. I would have to see over what time interval and check nursing notes. The NG tube is showing some mild dark output in the canister but none in the tubing so appears clear at this time. Chest x-ray this morning showed still diffuse interstitial infiltrates consistent with CHF. No pneumothorax. The tube position is still good. We will check labs again this morning. Hopefully transfer will occur today. Her creatinine is still quite elevated and she would still seem in need of dialysis given the fluid overload and poor output. Her phosphate is quite elevated and we can try some calcium carbonate liquid by the NG tube twice daily.
[2022-08-15] MEDS ORDERED: hydrALAZINE 10 MG TABLET PO SCH (09:00)
[2022-08-15] MEDS ORDERED: CALCIUM CARBONATE 1,250 MG/5 ML UDC PO SCH (09:00)
[2022-08-15] MEDS: PANTOPRAZOLE 40 MG VIAL IVP SCH (09:28)
[2022-08-15] MEDS ORDERED: CALCIUM CARBONATE CHEW 500 MG TABLET PO SCH (09:30)
[2022-08-15 09:43] LABS: ABG PH 7.46 (7.35-7.45); ABG PO2 81 mmHg (80-100)
[2022-08-15 09:44] LABS: ABG HCO3 14.7 mmol/L (22.0-26.0); ABG MODE OF VENTILATION ASSIST/CONTROL; ABG OXYGEN SATURATION 97 % (94-98); ABG RESPIRATORY RATE 18 b/min; ALLEN TEST POSITIVE
[2022-08-15 09:46] LABS: ABG PCO2 21 mmHg (34-45)
--- NOTE | 2022-08-15 10:28 | XRAY Report ---
PROCEDURE: Chest 1 View X-Ray INDICATIONS: chest pain TECHNIQUE: One view of the chest was acquired. COMPARISON: Chest radiographs 08/14/2022 FINDINGS: Surgical changes and devices: Endotracheal tube is seen in central position. Enteric tube also appea rs stable. A right internal jugular catheter is again seen with tip projecting over the superior cavo atrial junction. Lungs and pleura: Diffuse bilateral pulmonary opacities do not appear significantly changed from The exam from the day prior. No significant pleural effusion or pneumothorax. Mediastinum: Mediastinal contours appear normal. Heart size is unchanged. Bones and chest wall: No suspicious bony lesions. Overlying soft tissues appear unremarkable. IMPRESSION: Stable lines and tubes. Stable diffuse bilateral pulmonary opacities. Reviewed by: Aakash Aguirre MD on 08/15/2022 10:27 AM [facility] Approved by: Aakash Aguirre MD on 08/15/2022 10:27 AM [facility] Station ID: [id number]
[2022-08-15] MEDS: METOPROLOL 5 MG/5 ML VIAL IVP SCH (11:10)
[2022-08-15] MEDS ORDERED: fentaNYL 2,500 MCG in SODIUM CHLORIDE 0.9% 200 ML IV STA (11:55)
[2022-08-15] MEDS ORDERED: PROPOFOL 1000 MG/100 ML 1,000 MG/100 ML BOTTLE IV STA (11:55)
[2022-08-15] MEDS ORDERED: CALCIUM ACETATE 667 MG CAPSULE PO SCH (12:00)
[2022-08-15] MEDS ORDERED: SODIUM BICARBONATE 150 MEQ in DEXTROSE 5% 1,000 ML IV SCH (12:00)
[2022-08-15] MEDS: ELECTROLYTE-A SOLUTION 1,000 ML IV SCH ×2 (12:21→13:07)
[2022-08-15] MEDS ORDERED: SEVELAMER 800 MG TABLET PO SCH (15:00)
[2022-08-15 16:00] LABS: HGB - HEMOGLOBIN 7.8 g/dL (12.0-16.0); LYMPHOCYTES # (AUTO) 0.2 10^3/uL (1.5-3.5); LYMPHOCYTES % (AUTO) 3.8 %; MEAN CORPUSCULAR HEMOGLOBIN 30.8 pg (27.0-31.0); MEAN CORPUSCULAR HGB CONC 33.9 g/dL (32.0-36.0); MEAN CORPUSCULAR VOLUME 90.9 fL (81.0-99.0); MEAN PLATELET VOLUME 10.5 fL (7.9-10.8); MONOCYTES # (AUTO) 0.2 10^3/uL (0.0-1.0); MONOCYTES % (AUTO) 3.4 %; NEUTROPHILS # (AUTO) 4.4 10^3/uL (1.5-6.6); NEUTROPHILS % (AUTO) 92.2 %; PLT - PLATELET COUNT 75 10^3/uL (130-450); RED BLOOD COUNT 2.53 10^6/uL (4.20-5.40); RED CELL DISTRIBUTION WIDTH 20.4 % (12.0-15.0); WHITE BLOOD COUNT 4.8 x10^3/uL (4.8-10.8)
[2022-08-15 16:02] LABS: VBG PCO2 27.2 mmHg (41-51); VBG PH 7.438 (7.31-7.41); VBG PO2 59.4 mmHg (25-47); VBG TOTAL CO2 18.8 mmol/L (24-29)
[2022-08-15 16:03] LABS: VBG BASE EXCESS -5.3 mmol/L (-2 - +2); VBG OXYGEN SATURATION 89.6 % (60-80)
[2022-08-15 16:29] LABS: CALCIUM 7.4 mg/dL (8.5-10.3); MAGNESIUM 2.2 mg/dL (1.7-2.8); PHOSPHORUS 11.5 mg/dL (2.5-4.6); POTASSIUM 4.9 mmol/L (3.5-5.0)
[2022-08-15 16:30] LABS: PLATELET ESTIMATE, MANUAL DECREASED (<130,000) (NORMAL); PLATELET MORPHOLOGY NORMAL APPEARANCE (NORMAL); SLIDE REVIEW? Indicated
[2022-08-15 16:32] LABS: CREATININE 8.3 mg/dL (0.4-1.0)
[2022-08-15 17:05] VITALS: BP 134/85
== END 2022-08-15 18:15 | disposition short-term general hospital (02) ==
LOC: ED 06:32
DX: I13.2 Hypertensive heart and chronic kidney disease with heart failure and with stage 5 chronic kidney disease, or end stage renal disease (principal); I50.21 Acute systolic (congestive) heart failure; N18.6 End stage renal disease; D63.1 Anemia in chronic kidney disease; J43.9 Emphysema, unspecified; J84.10 Pulmonary fibrosis, unspecified; N17.9 Acute kidney failure, unspecified; K92.2 Gastrointestinal hemorrhage, unspecified; E83.39 Other disorders of phosphorus metabolism; Z20.822 Contact with and (suspected) exposure to COVID-19
CPT/HCPCS: 31500; 36415; 36600; 51702; 71045; 80048; 80053; 82803; 83690; 83735; 83880; 84100; 84484; 85014; 85018; 85025; 86850; 86900; 86901; 86920; 87633; 93005; 94002; 94003; 94640; 94660; 96365; 96366; 96368; 96375; 96376; 99291; A9270; C8929; J1940; J2060; J3010; P9016; Q9957; 93306

== ENCOUNTER 2022-09-17 12:30 | Emergency (ER) | payer MEDICARE, OTHER ==
[2022-09-17] MEDS ORDERED: EPINEPHrine ABBOJECT 1 MG/10 ML SYRINGE IVP ONE (12:32)
[2022-09-17] MEDS ORDERED: SODIUM BICARBONATE ABBOJECT 50 MEQ/50 ML SYRINGE IVP ONE (12:32)
[2022-09-17] MEDS ORDERED: MIDAZOLAM 2 MG/2 ML VIAL ONE (12:37)
[2022-09-17] MEDS ORDERED: ETOMIDATE 40 MG/20 ML VIAL IVP ONE (12:37)
[2022-09-17] MEDS ORDERED: KETAMINE 500 MG/10 ML VIAL ONE (12:37)
[2022-09-17] MEDS ORDERED: PROPOFOL 1000 MG/100 ML 0 MG/0 ML BOTTLE IV ONE ×2 (12:38→12:44)
[2022-09-17] MEDS ORDERED: PROPOFOL 200 MG/20 ML VIAL IVP ONE (12:38)
[2022-09-17] MEDS ORDERED: ROCURONIUM 50 MG/5 ML VIAL ONE (12:39)
[2022-09-17] MEDS ORDERED: DEXTROSE IV ONE (12:45)
[2022-09-17] MEDS ORDERED: NOREPINEPHRINE IV ONE (12:45)
--- NOTE | 2022-09-17 13:12 | ED Physician Documentation ---
History of Present Illness - Stated complaint Stated Complaint: NOT BREATHING - History obtained from History obtained from: Family (Pt's ) - Additonal information Additional information: Patient brought in unresponsive and found to be in asystole. CPR initiated per ACLS protocol. Per the patient's , she has a history of kidney failure and was last dialyzed on Thursday.She was just discharged from [facility] 10 days ago.She had been declining over the last 6 days and appeared to be having increasing swelling despite going to her dialysis appointments.She did complete her dialysis on Thursday. She did require oxygen briefly during that session. She has been having increased anxiety recently so Ambien was prescribed.She took an Ambien last night and this morning appeared to be unwell. He could not get her to eat or drink. He wanted to give her her home medications. He had to carry her into his car and she became unresponsive in route.He was attempting to take her to dialysis where her aircraft captain was but decided that she would not make it to [place] and thus came to [facility]. Review of Systems Unable to obtain: Unresponsive PD PAST MEDICAL HISTORY - Past Medical History Cardiovascular: Hypertension Respiratory: Other (Pulmonary fibrosis by 2021 CT chest, takes inhalers) Neuro: None Endocrine/Autoimmune: None, Other (Glomerulonephritis) GI: None NUCLEAR OPERATIONS SPECIALIST: None : Other HEENT: Chronic vision loss Psych: None Musculoskeletal: None, Other Derm: None - Past Surgical History Past Surgical History: Yes General: Other (Hernia repair) /NUCLEAR OPERATIONS SPECIALIST: Hysterectomy - Present Medications Home Medications: Ambulatory Orders Medication Instructions Recorded Confirmed Aspirin [[place] Aspirin] 81 mg PO DAILY 08/13/22 08/13/22 Ferrous Sulfate 325 mg PO DAILY 08/13/22 08/13/22 Mecobalamin [B12 Active] 1,000 mcg PO DAILY 08/13/22 08/13/22 Spironolactone [Aldactone] 25 mg PO DAILY PM 08/13/22 08/13/22 Torsemide 100 mg PO BID 08/13/22 08/13/22 amLODIPine [Norvasc] 5 mg PO DAILY PM 08/13/22 08/13/22 carvediloL [Coreg] 12.5 mg PO BID 08/13/22 08/13/22 - Allergies Allergies/Adverse Reactions: Allergies Allergy/AdvReac Type Severity Reaction Status Date / Time No Known Drug Allergies Allergy Verified 08/13/22 06:55 - Social History Does the pt smoke?: No Smoking Status: Never smoker Does the pt drink ETOH?: No Does the pt have substance abuse?: No - Immunizations Immunizations are current?: Yes - POLST Patient has POLST: No PD ED PE NORMAL - General General: Other (Unresponsive) - HEENT HEENT: Atraumatic, Other (Pupils fixed and dilated) - Cardiac Cardiac: Other (Asystole; tunneled catheter to R chest) - Respiratory Respiratory: Other (No spontaneous respirations; + breath sounds bilaterally with BVM) - Abdomen Abdomen: Soft, Non distended - Derm Derm: No rash - Neuro Neuro: Other (Unresponsive) Results - Vitals Vitals: Vital Signs - 24 hr 09/17/22 12:30 Heart Rate 0 L Respiratory 0 L Rate O2 Saturation 60 L Oxygen O2 Source Room air - Labs Labs: Laboratory Tests 09/17/22 12:43 POC Whole Bld Glucose 94 Procedures - General procedure General procedure: I placed an IO in pt's L tibia. Easily flushes. PD Medical Decision Making - ED course Complexity details: d/w family ED course: Patient presented to the ED unresponsive, found to be in asystole.CPR and ACLS protocols were initiated.Patient was intubated by LEAD INGOT MOLDER. I placed an IO and medications were administered including several rounds of epi, calcium, sodium bicarb. She does have a history of dialysis but has been going to her regular dialysis appointments. She remained in asystole/PEA With no signs of cardiac activity on ultrasound. She had bilateral breath sounds. Her glucose was normal.I had several conversations with her who was present. He did want us to continue with resuscitation for some time but after approximately 30 minutes he agrees that if there is no Cardiac activity on next check then we should allow the patient to pass.Time of was 1302.There is no signs of trauma. I do not feel that she would be a biomedical specialist case. Departure - Departure Disposition: 20 Clinical Impression: Cardiac arrest Condition: Critical
--- NOTE | 2022-10-10 12:17 | ANESTHESIA PROCEDURE NOTE ---
Anesthesia Intubation Template - Intubation Blade: positive: Zoe (2) Tube: Size-enter number (7.5), Cuffed, Marked at teeth-enter cm (23) Route: Oral Placement Confirmation: End tidal CO2, Direct visualization, Bilateral breath sounds Complications: No complications (This was requested by Soraya Hendrix MD as patient was coded. No meds were given by me, patient unresponsive, unreactive to DVL.)
== END 2022-09-17 13:02 | disposition expired ==
LOC: ED 12:31
DX: I46.9 Cardiac arrest, cause unspecified (principal); I12.0 Hypertensive chronic kidney disease with stage 5 chronic kidney disease or end stage renal disease; N18.6 End stage renal disease; Z99.2 Dependence on renal dialysis
CPT/HCPCS: 31500; 36680; 92950; 99285